=== PATIENT | male | born 1990 ===

== ENCOUNTER 2021-06-21 14:16 | Outpatient (REF) | payer OTHER, SELFPAY ==
--- NOTE | ~2021-06-21 | XR_ITS ---
EXAMINATION: XR ANKLE, LEFT CLINICAL INFORMATION: Left ankle pain. COMPARISON: None TECHNIQUE: AP, lateral, and mortise views of the left ankle. FINDINGS: Tiny calcification interposed between the lateral malleolus and lateral talus. Findings could indicate minimal avulsion fractures in the appropriate clinical setting. Lateral soft tissue swelling. No dislocation. Ankle mortise is maintained. Small tibiotalar joint effusion. No osseous erosion. No joint space or marginal osteophytes. XR/XR ankle LT min 3V IMPRESSION: Lateral soft tissue swelling and tibiotalar joint effusion. Tiny calcification interposed between the lateral malleolus and talus, which could indicate tiny avulsion fractures.
== END 2021-06-21 14:17 | disposition home or self-care (01) ==
LOC: HO.XRAY 14:16
PROVIDERS: PCP Hospitalist; Visit Provider Nurse Practitioner Family
DX: M25.572 Pain in left ankle and joints of left foot (principal)
CPT/HCPCS: 73610

== ENCOUNTER 2021-06-27 07:21 | Outpatient (REF) | payer OTHER, SELFPAY ==
--- NOTE | ~2021-06-27 | XR_ITS ---
EXAMINATION: XR ANKLE, LEFT CLINICAL INFORMATION: Pain COMPARISON: Previous x-ray 06/21/2021 TECHNIQUE: AP, lateral, and mortise views of the left ankle. FINDINGS: Bone alignment is normal. There is a faint soft tissue ossification in between the lateral malleolus and lateral talus similar to recent exam again questionable for possible talar avulsion fracture. There is also a linear ossification in between the medial talus and medial malleolus questionable for avulsion fracture. The ankle mortise is otherwise normal. There is an ankle joint effusion. Soft tissues are otherwise normal. XR/XR ankle LT min 3V IMPRESSION: Unchanged faint soft tissue ossification in between the lateral malleolus and lateral talus questionable for small avulsion fracture. Linear ossification in between the medial talus and medial malleolus also questionable for avulsion fracture. Ankle joint effusion.
== END 2021-06-27 07:22 | disposition home or self-care (01) ==
LOC: HO.HOSX 07:21
PROVIDERS: Visit Provider Physician Assistant
DX: S82.892D Other fracture of left lower leg, subsequent encounter for closed fracture with routine healing (principal)
CPT/HCPCS: 73610; 99202

== ENCOUNTER → 2021-07-11 08:10 | Outpatient (BNVA) | payer OTHER, SELFPAY | PROVIDERS: PCP Hospitalist; Visit Provider Physician Assistant | DX: S82.892D Other fracture of left lower leg, subsequent encounter for closed fracture with routine healing (principal) | CPT/HCPCS: 99212 ==

== ENCOUNTER 2021-08-08 08:04 | Outpatient (REF) | payer OTHER, SELFPAY | END 2021-08-08 08:05 | disposition home or self-care (01) | LOC: HO.HOSX 08:04 | PROVIDERS: Visit Provider Physician Assistant | DX: Z13.89 Encounter for screening for other disorder (principal) ==

== ENCOUNTER 2021-08-11 07:16 | Outpatient (REF) | payer OTHER, SELFPAY ==
--- NOTE | ~2021-08-11 | XR_ITS ---
EXAMINATION: XR ANKLE, LEFT CLINICAL INFORMATION: Pain and unspecified ankle and joint COMPARISON: 06/27/2021 TECHNIQUE: AP, lateral, and mortise views of the left ankle. FINDINGS: The previously seen suspected avulsion fractures from the medial and lateral aspect of the talus are not seen on the current study. No new or additional fracture. No soft tissue swelling. No widening of the ankle mortise. XR/XR ankle LT min 3V IMPRESSION: No acute osseous abnormality. The previously seen suspected avulsion fractures from the medial and lateral talus are not seen on the current exam.
== END 2021-08-11 07:17 | disposition home or self-care (01) ==
LOC: HO.HOSX 07:16
PROVIDERS: Visit Provider Physician Assistant
DX: S82.892A Other fracture of left lower leg, initial encounter for closed fracture (principal)
CPT/HCPCS: 73610; 99212

== ENCOUNTER 2021-09-06 14:00 | Outpatient (RCR) | payer OTHER, SELFPAY ==
--- NOTE | 2021-08-11 09:52 | MHC.PT.OD ---
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 No showed for last appt on 08/09/21. Reports poor tolerance for wearing sneakers. Pain Score and Location: 5 L lateral ankle Objective Flowsheet: Tests & Measures DF to neutral PF to 40 degrees IV 20 degrees EV 5 degrees Sx verbalized with all ranges TTP distal achilles> gastroc soleus complex, ATFL/CFL, distal fibula, talocrural joint Pt presents in slide on sandals Educated in need of attendance and supportive footwear for therapy. Exercises Gentle forward revolution on bike x15 minutes level 2.0 Gastroc towel stretch with strap x 20 sec hold x 5R, seated ankle DF stretch in chair x 10 sec hold x 10R, resisted ankle pumps back and forth x 5 sec hold x 3 sets 10R, flexbar massage roller for bottom of foot to improve plantar fascia tissue extensibility. Pregait activity: Standing at side of parallel bars: pregait hip abd and hip ext completed with L LE in stance in effort to improve weight- bearing tolerance with RTB around ankle. Max cues for encouragement/support education why and how this activity will help him. Education of HEP compliance, supportive footwear for therapy, need for active participation at home with HEP in order to make gains, encouraged walking program. Modalities Assessment: Pt has demonstrated poor attendance thus far with therapy. He had his initial evaluation on 08/01/21 and then no showed for his follow up on 08/09/21. He was encourage to attend therapy 2-3x weekly; it is unclear as to why he has not been seen prior to today's appointment. Today he presents to the office in slip on sandals demonstrating improved gait symmetry/weightbearing tolerance from previous appointment. He showed poor carryover for the written ROM HEP exercises which were issued at time of evaluation. He was educated in the importance of consistent attendance and was told that if he no shows for a second appointment he will be D/C due to noncompliance. His ROM has improved since initial appointment. He may benefit from use of an ASO sleeve for inside of footwear to improve tolerance for CKC and return to work when appropriate. He rates his pain right now as a 5/10 and demonstrated fair>poor tolerance for trial of pregait CKC tasks in effort to improve his weight-bearing ability and gentle ROM. Pt is a R hand dominant, 30 y/o male, referred to PT from PCP following history of work related ankle injury which occurred on 06/06/21 after inversion twisting to L LE. Pt exhibits decreased range of motion of the left ankle, decreased strength, impaired weight bearing tolerance, and inability to run. 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 Pt would benefit from attending skilled PT services at a frequency of 2x/week x 6 weeks to address impairments, implement HEP, and restore functional mobility tolerance to resume PLOF. Pt presents with antalgic gait, decreased stance phase L LE, foot flat contact, demonstrating shortening and report of pain in L achilles. Pt was initiated in gentle AROM on bike seated, shown gastroc towel stretch in sitting, and advised to perform ankle pumps with 5 sec hold to tolerance. Pt was educated re: icing of L ankle to ease in symptoms/pain. Pt encouraged to ice ankle prn pain/edema;- reports has not been taking medication over the counter for sx, has not been icing ankle frequently. PT Plan: To see orthopedics today at 1:00pm. Short Term Goals: 1. L ankle DF to 10 degrees. 2. L ankle PF to 35 degrees. 3. L ankle IV to 25 degrees. 4. L ankle EV to 10 degrees. 5. Initiate HEP and carryover self care. Boiler Maker Goals: 1. Reciprocal gait pattern on stairs. 2. Functional squat with symmetry of weight bearing. 3. L SLS 20 seconds with good dynamic balance. 4. Pt will RTW with good I HEP, self care strategies. Electronically signed by: Yelena Soto, PT, DPT
== END 2021-12-18 09:55 | disposition home or self-care (01) ==
LOC: HO.PTWFD 14:00
PROVIDERS: Visit Provider Nurse Practitioner Family
DX: M25.572 Pain in left ankle and joints of left foot (principal)
CPT/HCPCS: 97110; 97140; 97161; 97530; 97535

== ENCOUNTER 2021-12-05 | Outpatient (REF) | payer OTHER, SELFPAY | END 2021-12-05 00:01 | disposition home or self-care (01) | LOC: HO.LNP | PROVIDERS: Visit Provider Nurse Practitioner Family | DX: Z13.89 Encounter for screening for other disorder (principal) ==

== ENCOUNTER 2021-12-05 11:56 | Outpatient (REF) | payer OTHER, SELFPAY ==
[2021-12-05 12:05] LABS: MANUAL DIFF FLAG NO
[2021-12-05 12:25] LABS: Basophils Absolute Auto 0.1 X10*3/uL (0.0-0.2); Basophils Percent Auto 0.8 % (0-2); Eosinophils Absolute Auto 0.1 X10*3/uL (0.0-0.4); Eosinophils Percent Auto 0.9 % (0-4); Hematocrit 44.7 % (42.0-52.0); Imm Gran Abs Auto 0.04 X10*3/uL (0.00-0.03); Imm Gran Pct Auto 0.4 % (0.0-0.4); Lymphocytes Absolute Auto 2.2 X10*3/uL (1.2-4.9); Lymphocytes Percent Auto 24.4 % (20-40); Mean Corpuscular HGB Conc 35.8 g/dl (31.0-36.0); Mean Corpuscular Hemoglobin 31.3 pg (27.0-33.0); Mean Corpuscular Volume 87.5 fL (80.0-98.0); Mean Platelet Volume 9.5 fL (9.4-12.4); Monocytes Percent Auto 10.9 % (2-11); Neutrophils Absolute Auto 5.6 x10*3/uL (2.0-8.3); Neutrophils Percent Auto 62.6 % (45-73); Platelet Count 283 X10*3/uL (160-400); Red Blood Count 5.11 X10*6/uL (4.60-5.80); Red Cell Distribution Width 13.4 % (11.0-16.0)
[2021-12-05 12:42] LABS: Alanine Aminotransferase 37 U/L (0-40); Albumin Level 4.4 g/dL (3.5-5.0); Alkaline Phosphatase 74 U/L (39-117); Anion Gap 12 (12-20); Aspartate Amino Transferase 21 U/L (5-37); Bilirubin Total 0.3 mg/dL (0.0-1.0); Blood Urea Nitrogen 15 mg/dL (9-16); Calcium 9.6 mg/dL (8.4-10.2); Carbon Dioxide 26 mmol/L (22-29); Chloride 107 mmol/L (96-108); Estimated Glomerular Filt Rate > 60; Glucose Random 105 mg/dL (60-115); Potassium 4.7 mmol/L (3.3-5.1); Sodium 140 mmol/L (135-145); Total Protein 7.5 g/dL (6.5-8.0)
== END 2021-12-05 11:57 | disposition home or self-care (01) ==
LOC: HO.LAB 11:56
PROVIDERS: PCP Nurse Practitioner Family; Visit Provider Nurse Practitioner Family
DX: R10.9 Unspecified abdominal pain (principal); R19.5 Other fecal abnormalities
CPT/HCPCS: 36415; 80053; 85025

== ENCOUNTER 2021-12-06 | Outpatient (REF) | payer OTHER, SELFPAY ==
[2021-12-06 11:48] LABS: Leukocytes Stool Qualitative NEGATIVE (NEGATIVE)
== END 2021-12-06 00:01 | disposition home or self-care (01) ==
LOC: HO.LNP
PROVIDERS: Visit Provider Nurse Practitioner Family
DX: R19.5 Other fecal abnormalities (principal); R10.9 Unspecified abdominal pain
CPT/HCPCS: 87045; 87046; 89055

== ENCOUNTER 2022-11-28 12:36 | Inpatient (IN) | payer OTHER, SELFPAY ==
--- NOTE | ~2022-11-28 | CT_ITS ---
EXAMINATION: CT ABDOMEN AND PELVIS WITHOUT CONTRAST CLINICAL INFORMATION: Abdominal pain and distention COMPARISON: None TECHNIQUE: Multidetector volumetric imaging was performed from the superior aspect of the liver through the pubic symphysis. Sagittal and coronal reformatted images were obtained on the technologist's workstation. This CT examination was performed using dose optimization techniques as appropriate, variously including the following: *Automated exposure control *Adjustment of mA and/or kV according to patient size (this includes techniques or standardized protocols for targeted exams where dose is matched to indication/reason for exam; i.e. extremities or head) *Use of iterative reconstruction technique DLP: 568 mGy-cm FINDINGS: LUNG BASES: The visualized lung bases are unremarkable. LIVER, GALLBLADDER, AND BILIARY TREE: The liver is normal in size, shape, and attenuation. No focal hepatic lesion or biliary ductal dilatation is present. The gallbladder is unremarkable with no evidence of radiopaque gallstones, gallbladder wall thickening, or obvious pericholecystic inflammatory changes. PANCREAS: Unremarkable. SPLEEN: Unremarkable. ADRENAL GLANDS: Unremarkable. KIDNEYS AND URETERS: The kidneys are normal in size, shape, and attenuation. No hydronephrosis, hydroureter, or calculi seen. No perinephric stranding. BLADDER: Unremarkable. GASTROINTESTINAL TRACT: Wall thickening and edema of the colon. There is some stranding of the surrounding fat. Appearance is suggestive of colitis. There is a sparing of the distal sigmoid colon. There is stool in the colon. There are fluid-filled loops of small bowel probably representing an ileus. The appendix is unremarkable. No evidence of obstruction or megacolon. No ascites. No free air. ABDOMINAL WALL: No significant hernia is appreciated. LYMPH NODES: Small mesenteric lymph nodes. No enlarged lymph nodes. VASCULAR: Unremarkable. PELVIC VISCERA: Unremarkable. OSSEOUS STRUCTURES: Small sclerotic lesions in the pelvis and right proximal femur probably representing bone islands. CT/CT abdomen pelvis wo IV con IMPRESSION: Severe colitis. Fleischner guidelines were followed.
[2022-11-28 12:43] VITALS: BP 133/70; PULSE 96; RESP 18; TEMP 37.8; O2SAT 100; BMI 29.2
[2022-11-28 13:05] LABS: MANUAL DIFF FLAG NO
[2022-11-28 13:07] LABS: Basophils Absolute Auto 0.1 X10*3/uL (0.0-0.2); Basophils Percent Auto 0.3 % (0-2); Hematocrit 43.9 % (42.0-52.0); Hemoglobin 15.8 g/dl (14.0-18.0); Imm Gran Abs Auto 0.07 X10*3/uL (0.00-0.03); Imm Gran Pct Auto 0.4 % (0.0-0.4); Lymphocytes Absolute Auto 1.1 X10*3/uL (1.2-4.9); Lymphocytes Percent Auto 7.1 % (20-40); Mean Corpuscular Hemoglobin 30.9 pg (27.0-33.0); Mean Corpuscular Volume 85.7 fL (80.0-98.0); Mean Platelet Volume 9.4 fL (9.4-12.4); Monocytes Absolute Auto 1.3 X10*3/uL (0.1-1.2); Neutrophils Absolute Auto 13.5 x10*3/uL (2.0-8.3); Neutrophils Percent Auto 84.2 % (45-73); Platelet Count 240 X10*3/uL (160-400); Red Blood Count 5.12 X10*6/uL (4.60-5.80); Red Cell Distribution Width 13.4 % (11.0-16.0)
[2022-11-28 13:24] LABS: Alanine Aminotransferase 35 U/L (0-40); Albumin Level 4.5 g/dL (3.5-5.0); Alkaline Phosphatase 67 U/L (39-117); Anion Gap 13 (12-20); Aspartate Amino Transferase 22 U/L (5-37); Bilirubin Total 1.2 mg/dL (0.0-1.0); Blood Urea Nitrogen 21 mg/dL (9-16); Calcium 9.1 mg/dL (8.4-10.2); Carbon Dioxide 22 mmol/L (22-29); Chloride 105 mmol/L (96-108); Creatinine Clr Calc Pharmacy 79.9; Estimated Glomerular Filt Rate 56; Glucose Random 97 mg/dL (60-115); Lipase 12 U/L (8-78); Potassium 3.4 mmol/L (3.3-5.1); Sodium 137 mmol/L (135-145); Total Protein 7.2 g/dL (6.5-8.0)
--- NOTE | 2022-11-28 13:25 | ED.ABDPAIN ---
HPI - Abdominal Pain General Chief Complaint: Abdominal Pain Stated Complaint: from SNF, abd pain x 2 weeks, diff eat/bm per EMS Time Seen by Provider: 11/28/22 12:43 Source: patient Mode of arrival: EMS History of Present Illness HPI narrative: 32-year-old male who presents with his 3rd week of significant lower abdominal discomfort that he states has prevented him from being able to pass flatus without pain, he expresses pain on urination as well as on defecation. He states he has only been able to pass small amounts of diarrhea, describes chills, dizziness and feeling bloated. Patient denies any history of kidney stones. I received initial evaluation from walk-in clinic who stated that patient was diaphoretic at the clinic and appeared ?almost ready to pass out?. Related Data Previous Rx's Medication Instructions Recorded dicyclomine 10 mg capsule 10 mg PO BID PRN pain #14 caps 12/05/21 simethicone 80 mg chewable tablet 80 mg PO TID-QID PRN abdominal 12/05/21 (Gas Relief (simethicone)) distention #21 tabs omeprazole 20 mg tablet,delayed 20 mg PO DAILY #30 tabs 12/28/21 release Allergies Allergy/AdvReac Type Severity Reaction Status Date / Time No Known Allergies Allergy Verified 11/28/22 10:57 [No Known Allergies*] Review of Systems Review of Systems Pertinent positives and negatives as stated in HPI PMFSH Past Medical History Source: nursing notes reviewed Medical History Anxiety Depression Meningitis Post traumatic stress disorder (PTSD) Surgical screw in right hand Surgical History History of orthopedic surgery Family History Family History Mother Varicose veins of left leg with edema Depression with anxiety Breast cancer Chronic mental illness Brother Autism Father No problems noted. 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 GENERAL: Well developed, well nourished, in no acute distress. HEAD: Normocephalic/atraumatic EYES: PERRLA, EOMI EARS: Ext canals without abnormality OROPHARYNX: no oral lesions noted, posterior pharynx clear LUNGS: Normal breath sounds. No adventitious sounds or accessory muscle use. SpO2<100> CARDIOVASCULAR: Regular rate and rhythm without noted murmurs ABDOMEN: Soft, tenderness across lower abdomen, maximal at suprapubic without rebound, mild distension with bowel sounds. MUSCULOSKELETAL: No tenderness, deformities, or effusions noted on gross inspection. EXTREMITIES: No cyanosis, clubbing or edema. SKIN: Inspection of the skin reveals no rashes NEUROLOGIC: Alert and oriented x 4. Strength and sensation to light touch were grossly intact x 4. Course Course Course Narrative: 1500: I suspect sepsis. I reviewed all investigations which demonstrates that patient has a leukocytosis with left shift, he is febrile with BUCKY and CT findings consistent with colitis. Patient is received 2 L of fluid. And all results and findings discussed with him at bedside. I would consider sending this patient home on oral antibiotics if he had not already waited so long that he was noted to be diaphoretic, mildly distended and dizzy. I have discussed this case with the inpatient hospitalist who will accept admission. Reevaluation(s) Reevaluation #1: On further information gathering patient denies any family history of IBD and denies any personal history of antibiotic use. Time: 16:22 Medical Decision Making Medical Decision Making MDM Narrative: 32-year-old male with 3 weeks of worsening lower abdominal pain and associated difficulties with defecation and urination. Lab work and imaging studies were ordered. Differential Diagnosis Differential Diagnoses: The differential diagnosis associated with the presentation includes Appendicitis, renal colic, diverticulitis, UTI Admission/Observation Consideration of admission/observation: Escalation of care including admission/observation considered Due to leukocytosis and CT scan findings consider IV antibiotics is patient is entering into his 3rd week of abdominal pain. Consult Healthcare Provider Management of the patient was discussed with: Hospitalist I discussed with the inpatient hospitalist who accepts admission. Lab Data MDM Lab Attestation statement: I reviewed the patient's lab results. Please see the course Section for discussion. Result Diagrams: 11/28/22 13:01 11/28/22 13:01 Labs: Lab Results 11/28/22 11/28/22 11/28/22 Range/Units 13:01 13:01 13:30 WBC 16.0 H (4.8-10.8) X10*3/uL RBC 5.12 (4.60-5.80) X10*6/uL Hgb 15.8 (14.0-18.0) g/dl Hct 43.9 (42.0-52.0) % MCV 85.7 (80.0-98.0) fL MCH 30.9 (27.0-33.0) pg MCHC 36.0 (31.0-36.0) g/dl RDW 13.4 (11.0-16.0) % Plt Count 240 (160-400) X10*3/uL MPV 9.4 (9.4-12.4) fL Immature Gran % (Auto) 0.4 (0.0-0.4) % Neut % (Auto) 84.2 H (45-73) % Lymph % (Auto) 7.1 L (20-40) % [place] % (Auto) 8.0 (2-11) % Eos % (Auto) 0.0 (0-4) % Baso % (Auto) 0.3 (0-2) % Lymph # (Auto) 1.1 L (1.2-4.9) X10*3/uL [place] # (Auto) 1.3 H (0.1-1.2) X10*3/uL Eos # (Auto) 0.0 (0.0-0.4) X10*3/uL Baso # (Auto) 0.1 (0.0-0.2) X10*3/uL Abs Immat Gran (auto) 0.07 H (0.00-0.03) X10*3/uL Absolute Neuts (auto) 13.5 H (2.0-8.3) x10*3/uL Absolute Nucleated RBC 0.000 (0.0-0.012) X10*3/uL Nucleated RBC % (auto) 0.0 (0.0-0.2) /100WBC Sodium 137 (135-145) mmol/L Potassium 3.4 D (3.3-5.1) mmol/L Chloride 105 (96-108) mmol/L Carbon Dioxide 22 (22-29) mmol/L Anion Gap 13 (12-20) BUN 21 H (9-16) mg/dL Creatinine 1.47 H (0.5-1.4) mg/dL Estim Creat Clear Calc 79.9 Estimated GFR 56 Random Glucose 97 (60-115) mg/dL Calcium 9.1 (8.4-10.2) mg/dL Total Bilirubin 1.2 H (0.0-1.0) mg/dL AST 22 (5-37) U/L ALT 35 (0-40) U/L Alkaline Phosphatase 67 (39-117) U/L Total Protein 7.2 (6.5-8.0) g/dL Albumin 4.5 (3.5-5.0) g/dL Lipase 12 (8-78) U/L COVID-19 (YINKA) (Negative) COVID-19 Clin Com Influenza Type A ([facility]RAH) Negative (Negative) Influenza Type B (FARRAH) Negative (Negative) Influenza A & B Note See Note 11/28/22 Range/Units 13:30 WBC (4.8-10.8) X10*3/uL RBC (4.60-5.80) X10*6/uL Hgb (14.0-18.0) g/dl Hct (42.0-52.0) % MCV (80.0-98.0) fL MCH (27.0-33.0) pg MCHC (31.0-36.0) g/dl RDW (11.0-16.0) % Plt Count (160-400) X10*3/uL MPV (9.4-12.4) fL Immature Gran % (Auto) (0.0-0.4) % Neut % (Auto) (45-73) % Lymph % (Auto) (20-40) % [place] % (Auto) (2-11) % Eos % (Auto) (0-4) % Baso % (Auto) (0-2) % Lymph # (Auto) (1.2-4.9) X10*3/uL [place] # (Auto) (0.1-1.2) X10*3/uL Eos # (Auto) (0.0-0.4) X10*3/uL Baso # (Auto) (0.0-0.2) X10*3/uL Abs Immat Gran (auto) (0.00-0.03) X10*3/uL Absolute Neuts (auto) (2.0-8.3) x10*3/uL Absolute Nucleated RBC (0.0-0.012) X10*3/uL Nucleated RBC % (auto) (0.0-0.2) /100WBC Sodium (135-145) mmol/L Potassium (3.3-5.1) mmol/L Chloride (96-108) mmol/L Carbon Dioxide (22-29) mmol/L Anion Gap (12-20) BUN (9-16) mg/dL Creatinine (0.5-1.4) mg/dL Estim Creat Clear Calc Estimated GFR Random Glucose (60-115) mg/dL Calcium (8.4-10.2) mg/dL Total Bilirubin (0.0-1.0) mg/dL AST (5-37) U/L ALT (0-40) U/L Alkaline Phosphatase (39-117) U/L Total Protein (6.5-8.0) g/dL Albumin (3.5-5.0) g/dL Lipase (8-78) U/L COVID-19 (YINKA) Negative (Negative) COVID-19 Clin Com See Note Influenza Type A ([facility]) (Negative) Influenza Type B ([facility]) (Negative) Influenza A & B Note Radiology Impression Radiologist Impression: My interpretation is in agreement with the radiologist impression of CT scan findings. External Record Review External record reviewed: Outpatient record and Prior outpatient labs Prescription Management I considered prescription management with: Antibiotic Zosyn was provided Medications Administered Discontinued Medications Generic Name Dose Route Start Last Admin Trade Name Freq PRN Reason Stop Dose Admin Sodium Chloride 1,000 mls @ 999 mls/hr 11/28/22 13:30 11/28/22 16:06 Ns IV 12/28/22 14:30 Infused .Q1H1M PANKAJ Infusion Piperacillin Sod/Tazobactam 50 mls @ 100 mls/hr 11/28/22 15:21 11/28/22 16:15 Sod 3.375 gm/ Sodium Chloride IV 11/28/22 15:50 100 mls/hr ONCE ONE Administration Ketorolac Tromethamine 15 mg 11/28/22 13:30 11/28/22 14:15 Ketorolac Tromethamine 30 Mg/Ml Vial IVPUSH 11/28/22 13:31 15 mg ONCE ONE Administration Critical Care Time Critical Care Time Critical Care Time: Yes Total Critical Care Time: 45 Attestation: I personally attest to this time spent taking care of the patient. Discharge Plan Discharge Clinical Impression: Sepsis, Colitis, BUCKY (acute kidney injury) Patient Disposition: Admitted As Inpatient
[2022-11-28 13:53] LABS: COVID-19 Test Negative (Negative); IDNOW Serial# 08D9AD1C; Influenza A Negative (Negative); Influenza B2 Negative (Negative)
[2022-11-28] MEDS: 0.9 % Sodium Chloride 1,000 ML 999 ML IV ×2 (14:13→16:23)
[2022-11-28] MEDS: Ketorolac Tromethamine 30 MG/ML VIAL 15 MG IVPUSH (14:15)
[2022-11-28 15:10] VITALS: BP 128/67; PULSE 100; RESP 16; TEMP 38.3; O2SAT 97
[2022-11-28] MEDS: Piperacillin Sodium/Tazobactam 3.375 GM in 0.9 % Sodium Chloride 50 ML IV (16:15)
--- NOTE | 2022-11-28 16:29 | PM.IMHP ---
History of Present Illness Date of Service: 11/28/22 Chief Complaint: Abdominal pain, diarrhea 32 year old male with PMH as listed below who comes in with 3 weeks of daily non blody diarrhea, and moderate mid abdominal pain , fever and chills. Pain is worst with defcation and urination. ED work up WBC 16, CT = severe colitis, Cr 1.47, temp 100.9 Review of Systems Review of Systems: Abd pain, diarrhea, no blood in stool. Yes all other systems are reviewed and are negative [facility] Medical History Anxiety Depression Meningitis Post traumatic stress disorder (PTSD) Surgical screw in right hand Family History Mother Varicose veins of left leg with edema Depression with anxiety Breast cancer Chronic mental illness Brother Autism Father No problems noted. 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 Cognitive needs: No Hearing needs: No Vision needs: No Meds Allergies Allergy/AdvReac Type Severity Reaction Status Date / Time No Known Allergies Allergy Verified 11/28/22 10:57 [No Known Allergies*] Active Medications: Current Medications Sodium Chloride (Ns) 1,000 mls @ 999 mls/hr IV .Q1H1M PANKAJ Stop: 11/28/22 17:15 Last Admin: 11/28/22 16:23 Dose: 999 mls/hr Home Medications Medication Instructions Recorded Confirmed Last Taken Type No Known Home Meds 11/28/22 11/28/22 Unknown History Physical Exam Vital Signs and Narrative: Vital Signs: Last Vital Signs Temp 100.9 F H 11/28/22 15:10 Pulse 100 11/28/22 15:10 Resp 16 11/28/22 15:10 BP 128/67 11/28/22 15:10 Pulse Ox 97 11/28/22 15:10 O2 Del Method 11/28/22 15:10 BMI result Body Mass Index 29.2 Const: Other: Constitutional: Alert, in no distress, overweight. Mental Status: Oriented to person, place and time. Eyes: Pupils are equal, round and reactive to light. Ear, Nose and Throat: Oropharynx clear, mucous membranes moist. Ears and nose without eformities. Trachea midline. Respiratory: Clear to auscultation. No wheezing, rales or rhonchi. Cardiovascular: S1 S2 regular. No murmurs, rubs or gallops. Gastrointestinal: non specific diffuse tenderness, Abdomen soft, non-distended. Normal bowel sounds.?rectal exam defered Neurologic: Cranial nerves II-XII grossly intact. No focal neurological deficits. Moves all extremities spontaneously.? Skin: No rashes or lesions.? Musculoskeletal: No cyanosis or clubbing. Psychiatric: Normal mood and affect? Results Labs CBC and Chem 7: 11/28/22 13:01 11/28/22 13:01 Labs: Laboratory Results - last 24 hr 11/28/22 11/28/22 11/28/22 13:01 13:01 13:30 MCV 85.7 MCH 30.9 MCHC 36.0 RDW 13.4 Plt Count 240 MPV 9.4 Immature Gran % (Auto) 0.4 Neut % (Auto) 84.2 H Lymph % (Auto) 7.1 L [place] % (Auto) 8.0 Eos % (Auto) 0.0 Baso % (Auto) 0.3 Lymph # (Auto) 1.1 L [place] # (Auto) 1.3 H Eos # (Auto) 0.0 Baso # (Auto) 0.1 Abs Immat Gran (auto) 0.07 H Absolute Neuts (auto) 13.5 H Absolute Nucleated RBC 0.000 Nucleated RBC % (auto) 0.0 Anion Gap 13 Estim Creat Clear Calc 79.9 Estimated GFR 56 Random Glucose 97 Calcium 9.1 Total Bilirubin 1.2 H AST 22 ALT 35 Alkaline Phosphatase 67 Total Protein 7.2 Albumin 4.5 Lipase 12 COVID-19 ([facility]INKA) COVID-19 Clin Com Influenza Type A ([facility]) Negative Influenza Type B ([facility]) Negative Influenza A & B Note See Note 11/28/22 13:30 MCV MCH MCHC RDW Plt Count MPV Immature Gran % (Auto) Neut % (Auto) Lymph % (Auto) [place] % (Auto) Eos % (Auto) Baso % (Auto) Lymph # (Auto) [place] # (Auto) Eos # (Auto) Baso # (Auto) Abs Immat Gran (auto) Absolute Neuts (auto) Absolute Nucleated RBC Nucleated RBC % (auto) Anion Gap Estim Creat Clear Calc Estimated GFR Random Glucose Calcium Total Bilirubin AST ALT Alkaline Phosphatase Total Protein Albumin Lipase COVID-19 (YINKA) Negative COVID-19 Clin Com See Note Influenza Type A (FARRAH) Influenza Type B ([facility]RAH) Influenza A & B Note Imaging Radiologist's Impressions: Impressions Abdomen/Pelvis CT 11/28/22 14:08 IMPRESSION: Severe colitis. Fleischner guidelines were followed. Assessment and Plan (1) Sepsis: Status: Acute (2) Colitis: Status: Acute (3) BUCKY (acute kidney injury): Status: Acute Plan 32 yo male with sepsis due to severe colitis, DDx: IBD(chrohn's vs UC) -check CRP, ESR, GI consult, -IVF, hold Abx for now -Zofran, morphine for pain Time Spent With Patient Time: Total time managing care of this patient today ____ minutes. Quality Stroke Does the patient have a stroke diagnosis?: No VTE Prior VTE?: No VTE Risk Level:: Medical - low VTE Device Contraindication: Treatment Not Indicated VTE Drug Contraindication: Treatment Not Indicated
[2022-11-28 16:31] LABS: Appearance Urine Clear; Color Urine Dark Yellow; Glucose Urine UA Negative (Negative); Leukocyte Esterase Urine Negative (Negative); Nitrite Urine Negative (Negative); Specific Gravity - Urine >= 1.030 (1.005-1.025); UMIC TRIGGER UACC YES; Urine Blood Negative (Negative); Urine Ketones 80 mg/dL (Negative); Urine Protein 30 (1+) mg/dL (Neg-Trace)
[2022-11-28 16:34] LABS: Bacteria Urine None Seen (None Seen); Hyaline Casts Urine 0-2 /LPF (0-2); Squamous Epithelial Cell Urine 0-2 /HPF (0-2); WBC Urine 0-5 /HPF (0-5)
--- NOTE | 2022-11-28 16:45 | PHA.MEDREC ---
Pharmacy Consult ? Medication Reconciliation Pharmacy has completed the medication reconciliation.
[2022-11-28 17:08] LABS: Lactic Acid 1.1 mmol/L (0.5-2.0)
[2022-11-28] MEDS: Acetaminophen 325 MG TABLET 975 MG PO (17:23)
[2022-11-28 18:49] VITALS: BP 127/61; PULSE 98; RESP 17; TEMP 39; O2SAT 97
[2022-11-28 20:25] VITALS: BP 102/55; PULSE 90; RESP 14; TEMP 37.8; O2SAT 98
--- NOTE | 2022-11-28 20:50 | PC.NURSE ---
Assumed care for pt. Pt aox4 resting at the bedside. Reports no pain at this time. Pt able to ambulate independently. Provided stool sample. Sample is light brown and watery/diarrhea. Sample sent to the lab as ordered. Pt is aware of plan of care.
[2022-11-28 21:40] LABS: CDiff Gene PCR NEGATIVE (Negative)
[2022-11-28 22:55] VITALS: BP 122/59; PULSE 100; RESP 14; TEMP 39.1; O2SAT 99
[2022-11-28] MEDS: Morphine Sulfate 2 MG/ML CARTRIDGE IVPUSH (22:56)
[2022-11-29] VITALS: BP 116/62; PULSE 99; RESP 20; TEMP 39.2; O2SAT 99
[2022-11-29] MEDS: Acetaminophen 325 MG TABLET 650 MG PO ×2 (01:11→12:16)
--- NOTE | 2022-11-29 01:16 | PC.NURSE ---
Pt medicated with Tylenol for fever.
[2022-11-29 03:57] VITALS: BP 109/62; PULSE 81; RESP 16; TEMP 36.9; O2SAT 96
[2022-11-29 06:00] VITALS: BP 113/64; PULSE 81; RESP 16; TEMP 37.2; O2SAT 97
--- NOTE | 2022-11-29 10:36 | MHC.CM.PN ---
PT REPORTS HE LIVES WITH HIS S/O AND IS INDEPENDENT WITH CARE PT DENIES USE OF DME OR SERVICES PT HAS NO PCP AND SAYS THE LAST ONE HE WAS ACTIVE WITH WAS DR EMILEE TONY PT REPORTS HE DOES KNOW HOW TO CONNECT WITH A NEW PROVIDER PT IS NOT MANDIE NICHOLSON AND HAS NO HCP CURRENT DC PLAN IS HOME WITH NO SERVICES HE WILL ARRANGE TRANSPORT
[2022-11-29 11:23] LABS: Adenovirus F 40/41 Not Detected (Not Detect.); Astrovirus Not Detected (Not Detect.); Cryptosporidium Not Detected (Not Detect.); Cyclospora cayetanensis Not Detected (Not Detect.); E. coli EAEC Not Detected (Not Detect.); E. coli EPEC Not Detected (Not Detect.); E. coli ETEC Not Detected (Not Detect.); E. coli STEC Not Detected (Not Detect.); Entamoeba histolytica Not Detected (Not Detect.); Giardia lamblia Not Detected (Not Detect.); Norovirus GI/GII Not Detected (Not Detect.); Plesiomonas shigelloides Not Detected (Not Detect.); Rotavirus A Not Detected (Not Detect.); Salmonella Not Detected (Not Detect.); Sapovirus Detected (Not Detect.); Shigella sp./EIEC Not Detected (Not Detect.); Vibrio Not Detected (Not Detect.); Vibrio Cholerae Not Detected (Not Detect.); Yersinia enterocolitica Not Detected (Not Detect.)
[2022-11-29 11:31] LABS: Campylobacter Detected (Not Detect.)
--- NOTE | 2022-11-29 11:33 | MHC.IC ---
Patient has + GI panel for Campylobacter and Sapovirus. Please use SOAP and WATER after all contact and BLEACH for disinfecting surfaces.
[2022-11-29] MEDS: Morphine Sulfate 2 MG/ML CARTRIDGE IVPUSH (12:06)
--- NOTE | 2022-11-29 12:37 | PM.GICN ---
History of Present Illness Data of Consult Service Date: 11/29/22 Requesting physician: Nicanor Long Primary Care Provider: KRISTIN Arce HPI Reason for consult: colitis 32 YM with GERD, anxiety, depression and PTSD seen at [facility] on 11/28/22 with 3 weeks of abdominal pain and daily non blody diarrhea, fever and chills. Pain is worst with defcation and urination.? ED work up WBC 16, Cr 1.47,? temp 100.9 Pt reports suddent onset of diffuse abdominal pain 3 weeks ago (had a burger, fries and chicken McNuggets from [employer] approx 4 hours prior to onset of symptoms) Pt had nausea and vomiting during the initial week of illness and was unable to eat. You intake was decreased to 1 meal a day. Abdominal pain was accompanied by diarrhea consisting of pudding like stool (which were hard to push out) Abd pain was 10/10 yesterday and improved to 6/10 today. He reports having 13 BMs yesetrday and 6-7 today. The diarrhea became watery during the 2nd week and was associated with excruciating abdominal and rectal pain associated with bowel movements. Pt reports multiple small, non-bloody BMs with passage of stool every 1-1/2-2 hours Pt reports associated chills, intermittent fevers (100 to 101F) and GUERRA. Patient denies major cardiac or pulmonary problems. Patient denies smoking cigarettes or EtOH abuse. He smokes marijuana twice daily. 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 Denies being on chronic anticoagulation. Family hx is positive for Crohn's disease in his mother and maternal aunt. Mom also has exocrine 6 pancreatic insufficiency. Maternal GF had colon cancer. PAST EGD/COLONOSCOPY: Pt reports having an EGD and a colonoscopy 15 yrs ago at [facility] for evaluation of rectal bleeding and was diagnosed with hemorrhoids. PAST GI HISTORY BY REVIEW OF MEDICAL RECORDS: Stool culture was positive for Campylobacter and Sapovirus 11/28/[address] SCAN SHOWED: GASTROINTESTINAL TRACT: Wall thickening and edema of the colon. There is some stranding of the surrounding fat. Appearance is suggestive of colitis. There is a sparing of the distal sigmoid colon. There is stool in the colon. There are fluid-filled loops of small bowel probably representing an ileus. The appendix is unremarkable. No evidence of obstruction or megacolon. No ascites. No free air. Review of Systems Review of Systems: Abd pain, diarrhea, no blood in stool. Yes all other systems are reviewed and are negative [facility] Past Medical History Medical History Anxiety Depression GERD (gastroesophageal reflux disease) Meningitis Post traumatic stress disorder (PTSD) Surgical screw in right hand Family History Family History Mother Varicose veins of left leg with edema Depression with anxiety Breast cancer Chronic mental illness Brother Autism Father No problems noted. 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 Cognitive needs: No Hearing needs: No Vision needs: No Meds Allergies Allergy/AdvReac Type Severity Reaction Status Date / Time azithromycin Allergy Intermediate Itching Verified 12/18/22 11:54 Active Medications: Current Medications Morphine Sulfate (Morphine Sulfate 2 Mg/Ml Cartridge) 2 mg IVPUSH Q5M PRN; Protocol PRN Reason: Chest Pain Last Admin: 11/29/22 12:06 Dose: 2 mg Physical Exam Vital Signs: Vital Signs: Last Vital Signs Temp 99.0 F 11/29/22 06:00 Pulse 81 11/29/22 06:00 Resp 16 11/29/22 06:00 BP 113/64 11/29/22 06:00 Pulse Ox 97 11/29/22 06:00 O2 Del Method 11/29/22 06:00 BMI result Body Mass Index 29.2 Const: General: healthy appearing and no acute distress Nutritional Appearance: overweight Orientation/consciousness: patient oriented x3 Limitations: no limitations HEENT: Head: Yes normal to inspection Ears: hearing grossly normal bilaterally Mouth: Normal oral and palatal mucosa present Eyes: Sclerae: sclerae normal Pupils: Equal, round and reactive pupils present Neck: Neck: Yes normal visual inspection Chest: Chest palpation & inspection: normal inspection of the chest Resp: Effort & Inspection: normal respiratory effort Auscultation: clear to auscultation bilaterally Cardio: Palpation: normal PMI Rate: regular rate Rhythm: regular rhythm Heart sounds: S1 normal heart sound present, S2 normal heart sound present and no murmurs GI: Inspection: Yes distended (slightly) Palpation (GI): Soft to palpation, Tenderness to palpation present (GI) (Mild diffuse abd tenderness - Rt > left) and No hepatosplenomegaly present Auscultation: normal bowel sounds Rectal Exam - Male: Yes deferred Skin: General skin exam: no rashes or lesions noted Neuro: General: patient oriented x3, gait normal and moves all extremities Cranial nerves: Yes Equal, round and reactive pupils present Psych: Appearance: grossly normal Mental Status: mental status grossly normal Results Labs 11/29/22 12:37 11/29/22 12:37 Labs: Short CBC 11/28/22 Range/Units 13:01 WBC 16.0 H (4.8-10.8) X10*3/uL Hgb 15.8 (14.0-18.0) g/dl Hct 43.9 (42.0-52.0) % Plt Count 240 (160-400) X10*3/uL BMP 11/28/22 13:01 Sodium 137 Potassium 3.4 D Chloride 105 Carbon Dioxide 22 BUN 21 H Creatinine 1.47 H Calcium 9.1 Liver Function 11/28/22 Range/Units 13:01 Total Bilirubin 1.2 H (0.0-1.0) mg/dL AST 22 (5-37) U/L ALT 35 (0-40) U/L Alkaline Phosphatase 67 (39-117) U/L Albumin 4.5 (3.5-5.0) g/dL Urine 11/28/22 Range/Units 16:25 Urine Color Dark Yellow Urine Appearance Clear Urine pH 6.0 (5.0-9.0) Ur Specific [place] >= 1.030 H (1.005-1.025) Urine Protein 30 (1+) H (Neg-Trace) mg/dL Urine Glucose (UA) Negative (Negative) mg/dL Assessment and Plan (1) Colitis: Status: Resolved (2) GERD (gastroesophageal reflux disease): Status: Inactive (3) Bloating: Status: Resolved Plan 32 YM with GERD, anxiety, depression and PTSD admitted to [facility] on 11/28/22 with 3 weeks of abdominal pain with distension and daily non bloody diarrhea, fever and chills. Pain is worst with defcation and urination.? ED work up WBC 16, Cr 1.47,? temp 100.9 Stool culture was positive for Campylobacter and Sapovirus. Pt's symptoms are likely due to Campylobacter infection. Subacute presentation of Crohn's disease is less likely. Family hx is positive for Crohn's disease in his mother and maternal aunt. Mom also has exocrine 6 pancreatic insufficiency. Maternal GF had colon cancer. 11/28/[address] SCAN SHOWED: GASTROINTESTINAL TRACT: Wall thickening and edema of the colon. There is some stranding of the surrounding fat. Appearance is suggestive of colitis. There is a sparing of the distal sigmoid colon. There is stool in the colon. There are fluid-filled loops of small bowel probably representing an ileus. The appendix is unremarkable. No evidence of obstruction or megacolon. No ascites. No free air RECOMMENDATIONS: 1. Agree with IV antibiotics and IV pain medications. 2. If symptoms of abdominal pain and diarrhea improve over 48 to 72 hrs, he can be discharged home. If symptoms persist, pt can be scheduled for a colonoscopy Time Spent With Patient Time: Total time managing care of this patient today ____ minutes. Procedures Date of Service Date of Service: 11/29/22
[2022-11-29 12:45] LABS: Hematocrit 42.4 % (42.0-52.0); Hemoglobin 14.6 g/dl (14.0-18.0); Mean Corpuscular HGB Conc 34.4 g/dl (31.0-36.0); Mean Platelet Volume 9.7 fL (9.4-12.4); Platelet Count 168 X10*3/uL (160-400); Red Blood Count 4.71 X10*6/uL (4.60-5.80)
--- NOTE | 2022-11-29 13:03 | PC.NURSE ---
PT ABLE TO AMBULATE TO BATHROOM W STEADY GAIT. HAD LIQUID BM PER PT. REQUESTING MEDICATION FOR ABD PAIN AND HEADACHE, MEDICATED PER EMAR. TOLERATING PO LIQUID WITHOUT ISSUE. AWAITING INPT BED ASSIGNMENT. DIET ADVANCED W PROVIDER. POTENTIAL FOR DISCHARGE LATER TODAY, WILL REVISIT.
[2022-11-29 13:07] LABS: Anion Gap 12 (12-20); Blood Urea Nitrogen 17 mg/dL (9-16); Calcium 8.3 mg/dL (8.4-10.2); Carbon Dioxide 18 mmol/L (22-29); Chloride 110 mmol/L (96-108); Estimated Glomerular Filt Rate > 60; Glucose Random 103 mg/dL (60-115); Potassium 3.3 mmol/L (3.3-5.1); Sodium 137 mmol/L (135-145)
--- NOTE | 2022-11-29 13:07 | HO.PM.IMPN ---
Subjective Subjective Date of Service: 11/29/22 Interval History: f/u on severe colitis, abdominal pain, stool studies show saporovirus and campylobacter, overall she's feeling better Review of Systems Abd pain, diarrhea, no blood in stool. Physical Exam Vital Signs: Vital Signs: Last Vital Signs Temp 99.0 F 11/29/22 06:00 Pulse 81 11/29/22 06:00 Resp 16 11/29/22 06:00 BP 113/64 11/29/22 06:00 Pulse Ox 97 11/29/22 06:00 O2 Del Method 11/29/22 06:00 BMI result Body Mass Index 29.2 Const: Other: General: AO X 3, no acute distress Resp: CTA bilateral CVS: S1,S2,RRR GI: +BS, NT, no distention Skin: No rash Neuro: motor grossly intact Psych: appropriate affect Objective Data Active Medications Morphine Sulfate (Morphine Sulfate 2 Mg/Ml Cartridge) 2 mg IVPUSH Q5M PRN; Protocol PRN Reason: Chest Pain Last Admin: 11/29/22 12:06 Dose: 2 mg Documented By: HARISH Labs CBC & Chem 7: 11/29/22 12:37 11/28/22 13:01 Labs: Laboratory Results - last 24 hr 11/28/22 11/28/22 11/28/22 13:01 13:01 13:30 MCV 85.7 MCH 30.9 MCHC 36.0 RDW 13.4 Plt Count 240 MPV 9.4 Immature Gran % (Auto) 0.4 Neut % (Auto) 84.2 H Lymph % (Auto) 7.1 L [place] % (Auto) 8.0 Eos % (Auto) 0.0 Baso % (Auto) 0.3 Lymph # (Auto) 1.1 L [place] # (Auto) 1.3 H Eos # (Auto) 0.0 Baso # (Auto) 0.1 Abs Immat Gran (auto) 0.07 H Absolute Neuts (auto) 13.5 H Absolute Nucleated RBC 0.000 Nucleated RBC % (auto) 0.0 Anion Gap 13 Estim Creat Clear Calc 79.9 Estimated GFR 56 Random Glucose 97 Lactic Acid Calcium 9.1 Total Bilirubin 1.2 H AST 22 ALT 35 Alkaline Phosphatase 67 Total Protein 7.2 Albumin 4.5 Lipase 12 Urine Color Urine Appearance Urine pH Ur Specific [place] Urine Protein Urine Glucose (UA) Urine Ketones Urine Blood Urine Nitrite Ur Leukocyte Esterase Urine RBC Urine WBC Ur Squamous Epith Cells Urine Bacteria Hyaline Casts Stl C. cayetanensis PCR Stool Rotavirus A PCR Stl Adenov F PCR Stool Astrovirus (PCR) Stool Campylobacter PCR Stool Cryptosporidium PCR Stl Sh Tox Pr E STEC PCR Stool E coli O157 PCR Stl Enterotoxigenic E PCR Stool EPEC (PCR) Stool EAEC (PCR) Stl E. histolytica PCR Stool Giardia Lamblia PCR Stl P. shigelloides PCR Stool Salmonella PCR Stool Sapovirus (PCR) Stl Shigella/EIEC PCR St Y.enterocolitica PCR Stool Vibrio (PCR) Stl Vibrio cholerae PCR Stl Norovirus GI/GII PCR C. difficile Tox B Gene COVID-19 (YINKA) COVID-19 Clin Com Influenza Type A (FARRAH) Negative Influenza Type B (FARRAH) Negative Influenza A & B Note See Note 11/28/22 11/28/22 11/28/22 13:30 16:25 16:53 MCV MCH MCHC RDW Plt Count MPV Immature Gran % (Auto) Neut % (Auto) Lymph % (Auto) [place] % (Auto) Eos % (Auto) Baso % (Auto) Lymph # (Auto) [place] # (Auto) Eos # (Auto) Baso # (Auto) Abs Immat Gran (auto) Absolute Neuts (auto) Absolute Nucleated RBC Nucleated RBC % (auto) Anion Gap Estim Creat Clear Calc Estimated GFR Random Glucose Lactic Acid 1.1 Calcium Total Bilirubin AST ALT Alkaline Phosphatase Total Protein Albumin Lipase Urine Color Dark Yellow Urine Appearance Clear Urine pH 6.0 Ur Specific [place] >= 1.030 H Urine Protein 30 (1+) H Urine Glucose (UA) Negative Urine Ketones 80 Urine Blood Negative Urine Nitrite Negative Ur Leukocyte Esterase Negative Urine RBC 3-5 H Urine WBC 0-5 Ur Squamous Epith Cells 0-2 Urine Bacteria None Seen Hyaline Casts 0-2 Stl C. cayetanensis PCR Stool Rotavirus A PCR Stl Adenov F PCR Stool Astrovirus (PCR) Stool Campylobacter PCR Stool Cryptosporidium PCR Stl Sh Tox Pr E STEC PCR Stool E coli O157 PCR Stl Enterotoxigenic E PCR Stool EPEC (PCR) Stool EAEC (PCR) Stl E. histolytica PCR Stool Giardia Lamblia PCR Stl P. shigelloides PCR Stool Salmonella PCR Stool Sapovirus (PCR) Stl Shigella/EIEC PCR St Y.enterocolitica PCR Stool Vibrio (PCR) Stl Vibrio cholerae PCR Stl Norovirus GI/GII PCR C. difficile Tox B Gene COVID-19 (YINKA) Negative COVID-19 Clin Com See Note Influenza Type A (FARRAH) Influenza Type B (FARRAH) Influenza A & B Note 11/28/22 11/28/22 11/29/22 20:41 20:41 12:37 MCV 90.0 MCH 31.0 MCHC 34.4 RDW 14.0 Plt Count 168 D MPV 9.7 Immature Gran % (Auto) Neut % (Auto) Lymph % (Auto) [place] % (Auto) Eos % (Auto) Baso % (Auto) Lymph # (Auto) [place] # (Auto) Eos # (Auto) Baso # (Auto) Abs Immat Gran (auto) Absolute Neuts (auto) Absolute Nucleated RBC 0.000 Nucleated RBC % (auto) 0.0 Anion Gap Estim Creat Clear Calc Estimated GFR Random Glucose Lactic Acid Calcium Total Bilirubin AST ALT Alkaline Phosphatase Total Protein Albumin Lipase Urine Color Urine Appearance Urine pH Ur Specific [place] Urine Protein Urine Glucose (UA) Urine Ketones Urine Blood Urine Nitrite Ur Leukocyte Esterase Urine RBC Urine WBC Ur Squamous Epith Cells Urine Bacteria Hyaline Casts Stl C. cayetanensis PCR Not Detected Stool Rotavirus A PCR Not Detected Stl Adenov F 40/41 PCR Not Detected Stool Astrovirus (PCR) Not Detected Stool Campylobacter PCR Detected A Stool Cryptosporidium PCR Not Detected Stl Sh Tox Pr E STEC PCR Not Detected Stool E coli O157 PCR Not applicable Stl Enterotoxigenic E PCR Not Detected Stool EPEC (PCR) Not Detected Stool EAEC (PCR) Not Detected Stl E. histolytica PCR Not Detected Stool Giardia Lamblia PCR Not Detected Stl P. shigelloides PCR Not Detected Stool Salmonella PCR Not Detected Stool Sapovirus (PCR) Detected A Stl Shigella/EIEC PCR Not Detected St Y.enterocolitica PCR Not Detected Stool Vibrio (PCR) Not Detected Stl Vibrio cholerae PCR Not Detected Stl Norovirus GI/GII PCR Not Detected C. difficile Tox B Gene NEGATIVE COVID-19 (YINKA) COVID-19 Clin Com Influenza Type A (FARRAH) Influenza Type B (FARRAH) Influenza A & B Note Assessment and Plan (1) Colitis: Status: Acute (2) BUCKY (acute kidney injury): Status: Acute Plan 32 yo male with sepsis due to severe colitis, Stool serology: campylobacter and saporovirus -start liquid diet -Azithro 500 mg daily x 3 days to cover campylobacter -Saporovirus similar to Norovirus and symptomatic treatment -IVF until eating well -Zofran, morphine for pain BUCKY is resolving. continue IVF Need for inaptietn: hydration, IV Abx for colitis, possible dc later today if doing better and able to take pills by mouth Time Spent With Patient Time: Total time managing care of this patient today ____ minutes. Quality Stroke Does the patient have a stroke diagnosis?: No VTE Prior VTE?: No VTE Risk Level:: Medical - low VTE Device Contraindication: Treatment Not Indicated VTE Drug Contraindication: Treatment Not Indicated
[2022-11-29] MEDS: Azithromycin 500 MG in 0.9 % Sodium Chloride 250 ML 125 MG IV (13:30)
--- NOTE | 2022-11-29 14:19 | PC.NURSE ---
pt arm acutely red and itchy following azithromycin infusion start. removed and ice placed on iv site, site appears otherwise asymptomatic. provider aware and will change orders.
[2022-11-29] MEDS: levoFLOXacin/D5W 750 MG/150 ML PIGGYBACK 100 MG IV (14:35)
[2022-11-29] MEDS: diphenhydrAMINE HCL 50 MG/ML VIAL 25 MG IVPUSH (14:35)
[2022-11-29 16:02] VITALS: BP 128/76; PULSE 86; RESP 18; TEMP 37.1; O2SAT 98
[2022-11-29 19:30] VITALS: BP 146/58; PULSE 85; RESP 18; TEMP 36.9; O2SAT 99
[2022-11-30 03:44] VITALS: BP 110/59; PULSE 73; RESP 18; TEMP 36.2; O2SAT 98
[2022-11-30 08:00] VITALS: BP 118/60; PULSE 71; RESP 17; TEMP 36.5; O2SAT 99
--- NOTE | 2022-11-30 08:58 | PM.DS ---
DS: Providers Provider Date of Service: 11/30/22 Date of admission: 11/29/22 06:06 Primary care physician: KRISTIN Arce Consults: 11/29/22 11:57 Consult to Gastroenterology Routine Consulting Provider: Dorita Rich Reason for consultation: colitis Has provider been notified: No DS: Diagnosis Discharge Diagnosis (1) Colitis: Status: Resolved (2) Bloating: Status: Resolved DS: Summary Hospital Course Hospital Course: Chief Complaint: Abdominal pain, diarrhea 32 year old male with PMH as listed below who comes in with 3 weeks of daily non blody diarrhea, and moderate mid abdominal pain , fever and chills. Pain is worst with defcation and urination.? ED work up WBC 16, CT = severe colitis, Cr 1.47,? temp 100.9 Hospital course: Patient was admitted for management of acute, severe colitis, workup revealed Campylobacter and saporovirus (similar to norovirus) in the stool. He was treated with IV fluids, IV pain medication and started on antibiotics with a initially azithromycin (prefer agent for campylobacter) to which she reacted with a significant itchiness and was subsequently changed to Levaquin and to be treated for total of 3 days. He was seen by GI and will follow up with Dr. Rich on outpatient basis for Crohn's workup as the patient has family history of Crohn's disease. HIV is pending He is presently tolerating regular diet and his symptoms as nearly all gone. He is no longer febrile and WBC has returned to normal. He had BUCKY which is resolved with IVF. Final diagnosis: Campylobacter colitis BUCKY Time Spent with Patient Time attestation: Total time managing care of this patient today ____ minutes. Discharge coordination time: Greater than 30 minutes Quality: Safe Use of Opioids Does Pt have an Active Cancer Diagnosis on the Problem List?: No Quality: Stroke Does the patient have a stroke diagnosis?: No Physical Exam Vital Signs: Vital Signs: Last Vital Signs Temp 97.7 F 11/30/22 08:00 Pulse 71 11/30/22 08:00 Resp 17 11/30/22 08:00 BP 118/60 11/30/22 08:00 Pulse Ox 99 11/30/22 08:00 O2 Del Method 11/30/22 08:00 BMI result Body Mass Index 29.2 Const: Other: General: AO X 3, no acute distress Resp: CTA bilateral CVS: S1,S2,RRR GI: +BS, NT, no distention Skin: No rash Neuro: motor grossly intact Psych: appropriate affect DS: Data Data Completed and Pending Labs on day of discharge: Laboratory Results - last 24 hr 11/28/22 11/29/22 11/29/22 20:41 12:37 12:37 WBC 9.0 RBC 4.71 Hgb 14.6 Hct 42.4 MCV 90.0 MCH 31.0 MCHC 34.4 RDW 14.0 Plt Count 168 D MPV 9.7 Absolute Nucleated RBC 0.000 Nucleated RBC % (auto) 0.0 Sodium 137 Potassium 3.3 Chloride 110 H Carbon Dioxide 18 L Anion Gap 12 BUN 17 H Creatinine 1.35 Estim Creat Clear Calc 87.0 Estimated GFR > 60 Random Glucose 103 Calcium 8.3 L D Stl C. cayetanensis PCR Not Detected Stool Rotavirus A PCR Not Detected Stl Adenov F 40/41 PCR Not Detected Stool Astrovirus (PCR) Not Detected Stool Campylobacter PCR Detected A Stool Cryptosporidium PCR Not Detected Stl Sh Tox Pr E STEC PCR Not Detected Stool E coli O157 PCR Not applicable Stl Enterotoxigenic E PCR Not Detected Stool EPEC (PCR) Not Detected Stool EAEC (PCR) Not Detected Stl E. histolytica PCR Not Detected Stool Giardia Lamblia PCR Not Detected Stl P. shigelloides PCR Not Detected Stool Salmonella PCR Not Detected Stool Sapovirus (PCR) Detected A Stl Shigella/EIEC PCR Not Detected St Y.enterocolitica PCR Not Detected Stool Vibrio (PCR) Not Detected Stl Vibrio cholerae PCR Not Detected Stl Norovirus GI/GII PCR Not Detected Preliminary micro results at discharge 11/28/22 17:27 Blood Culture - Preliminary Blood - Venous No growth after 24 hours. 11/28/22 16:53 Blood Culture - Preliminary Blood - Venous No growth after 24 hours. Discharge Plan Discharge Anticipated Discharge Date/Time: 11/30/22 09:00 Patient Disposition: Home, Self-Care Discharge Diagnosis: Campylobacter colitis Referrals: Dorita Rich MD [Physician] - 1 Week (Call for appointment) Rosangela Simmons FNP [Primary Care Provider] - 1 Week Discharge Medications: No Action simethicone [Gas Relief 80 (simethicone)] 80 mg tablet,chewable 80 mg PO TID-QID PRN (Reason: abdominal distention) Qty: 30 0RF Discharge Orders: Discharge Order (Routine); Ordered 11/30/22 Ordered By: Nicanor Long Diet: Advance to usual diet Activity on Discharge: As tolerated Stand Alone Forms: Patient Portal Discharge page Care Plan Goals: Full recovery Health Concerns: Campylobacter colitis Plan of Treatment: To finish [facility], follow-up with Dr. Hilario knowles GI for Crohn's disease workup Assessment: As above Discharge Date/Time: 11/30/22 11:25
--- NOTE | 2022-11-30 09:08 | MHC.CM.PN ---
PATIENT IS DISCHARGED HOME TODAY - SELF CARE RN AWARE OF PLAN.
[2022-11-30 09:47] LABS: HIV AB/AG Nonreactive (Nonreactive); HIV Num 1 0.05 S/CO (0.00-0.99)
== END 2022-11-30 11:25 | disposition home or self-care (01) | DRG 720 ==
LOC: HO.ED 16:18 → HO.EDOVER 11-29 06:11 → HO.S3 11-29 13:52
PROVIDERS: Admitting Provider Internal Medicine; Emergency Provider Student in an Organized Health Care Education/Training Program; PCP Nurse Practitioner Family; Visit Provider Internal Medicine
DX: A41.9 Sepsis, unspecified organism (principal); N17.9 Acute kidney failure, unspecified; A04.5 Campylobacter enteritis; Z20.822 Contact with and (suspected) exposure to COVID-19; Z88.1 Allergy status to other antibiotic agents; F43.10 Post-traumatic stress disorder, unspecified; F41.9 Anxiety disorder, unspecified; F32.A Depression, unspecified
CPT/HCPCS: 36415; 74176; 80048; 80053; 81001; 83605; 83690; 85025; 85027; 87040; 87389; 87493; 87502; 87507; 87635; 99218; 99285; J0456; J1200; J1885; J1956; J2270; J2543

== ENCOUNTER 2023-03-06 15:11 | Outpatient (REF) | payer OTHER, SELFPAY ==
[2023-03-06 17:42] LABS: C Reactive Protein 0.27 mg/dL (< or = 0.50); Lipase 20 U/L (8-78)
[2023-03-06 18:15] LABS: Vitamin B12 301 pg/mL (200-900)
[2023-03-08 22:44] LABS: Transglutaminase Ab IgG <1.0 U/mL; Transglutaminase IgA <1.0 U/mL
[2023-03-09 11:07] LABS: H Pylori Breath Test Negative (Negative)
[2023-03-13 15:12] LABS: Vitamin D 25-OH, D2 <4 ng/mL; Vitamin D 25-OH, D3 23 ng/mL; Vitamin D 25-OH, Total 23 ng/mL (30-100)
== END 2023-03-06 15:12 | disposition home or self-care (01) ==
LOC: HO.LAB 15:11
PROVIDERS: PCP Nurse Practitioner Family; Referring Provider Nurse Practitioner Family; Visit Provider Nurse Practitioner Family
DX: K58.0 Irritable bowel syndrome with diarrhea (principal); K21.9 Gastro-esophageal reflux disease without esophagitis; K52.9 Noninfective gastroenteritis and colitis, unspecified; R10.9 Unspecified abdominal pain; R10.13 Epigastric pain; A04.5 Campylobacter enteritis; R14.0 Abdominal distension (gaseous); R19.5 Other fecal abnormalities; R15.9 Full incontinence of feces; E55.9 Vitamin D deficiency, unspecified
CPT/HCPCS: 36415; 82306; 82607; 82746; 83013; 83690; 86140; 86364; 99202

== ENCOUNTER → 2023-04-10 15:00 | Outpatient (BNVA) | payer OTHER, SELFPAY | PROVIDERS: PCP Nurse Practitioner Family; Visit Provider Nurse Practitioner Family | DX: A04.5 Campylobacter enteritis (principal); R14.0 Abdominal distension (gaseous); R19.5 Other fecal abnormalities | CPT/HCPCS: 99212 ==

== ENCOUNTER 2023-06-21 14:00 | Outpatient (AMB) | payer OTHER, SELFPAY ==
[2023-06-21 14:04] VITALS: BP 130/82; PULSE 72; O2SAT 98; BMI 27.9
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
== END 2023-06-21 14:45 | disposition home or self-care (01) ==
PROVIDERS: PCP Nurse Practitioner Family; Visit Provider Nurse Practitioner Family
DX: Z00.00 Encounter for general adult medical examination without abnormal findings (principal); M79.672 Pain in left foot; F32.89 Other specified depressive episodes
CPT/HCPCS: 99395

== ENCOUNTER 2024-04-08 08:49 | Outpatient (AMB) | payer OTHER, SELFPAY ==
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
[2024-04-08 09:03] VITALS: BP 110/74; PULSE 88; O2SAT 97; BMI 27.3
== END 2024-04-08 09:40 | disposition home or self-care (01) ==
PROVIDERS: PCP Nurse Practitioner Family; Visit Provider Internal Medicine
DX: M54.2 Cervicalgia (principal)
CPT/HCPCS: 99213

== ENCOUNTER 2024-05-15 16:07 | Outpatient (AMB) | payer OTHER, SELFPAY ==
[2024-05-15 16:12] VITALS: BP 100/60; PULSE 102; O2SAT 98; BMI 25.6
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
== END 2024-05-15 17:00 | disposition home or self-care (01) ==
PROVIDERS: PCP Internal Medicine; Visit Provider Internal Medicine
DX: M54.2 Cervicalgia (principal); G25.3 Myoclonus; R51.9 Headache, unspecified; M54.89 Other dorsalgia; G47.00 Insomnia, unspecified
CPT/HCPCS: 99214

== ENCOUNTER 2024-08-13 11:50 | Outpatient (AMB) | payer OTHER, SELFPAY ==
[2024-08-13 11:59] VITALS: BP 110/78; PULSE 94; O2SAT 98; BMI 27.6
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
== END 2024-08-13 12:31 | disposition home or self-care (01) ==
LOC: HO.HMGH 11:50
PROVIDERS: PCP Internal Medicine; Visit Provider Internal Medicine
DX: M54.2 Cervicalgia (principal); G25.3 Myoclonus; M54.89 Other dorsalgia; G47.00 Insomnia, unspecified; F41.9 Anxiety disorder, unspecified
CPT/HCPCS: 99214

== ENCOUNTER 2024-09-26 09:08 | Outpatient (AMB) | payer OTHER, SELFPAY ==
[2024-09-26 09:16] VITALS: BP 106/70; PULSE 94; TEMP 37.1; O2SAT 98; BMI 27.3
--- NOTE | 2024-09-26 09:16 | MHC.OFFWIV ---
Intake Vital Signs 09/26/24 09:16 Height 5 ft 9 in Weight 185 lb BMI 27.3 BP 106/70 Blood Pressure Location Lt brachial Position Sitting Pulse 94 Pulse Source Pulse Oximeter Temp 98.7 F Temp Source Oral Pulse Oximetry (%) 98 Oxygen Delivery Method Room Air Intake Visit Reasons: EP Chest congestion, stomach ache, Diarrhea Intake Note: Pt is here today c/o chest congestion, stomach ache and diarrhea x1week Patient Tobacco Use Status: Never used Tobacco Allergies azithromycin Allergy (Intermediate, Verified 09/26/24 09:30) Itching HPI EP Chest congestion, stomach ache, Diarrhea HPI Details Patient is a 34-year-old male comes to the walk-in clinic complaining Pt is here today c/o chest congestion, stomach ache and diarrhea x1week. He has not been taking Imodium AD. He has been modifying his diet to eat bland foods so as not to aggravate his symptoms and drinking adequate amount of water. [facility] Medical History GERD (gastroesophageal reflux disease) Post traumatic stress disorder (PTSD) Anxiety Depression Meningitis Surgical screw in right hand Surgical History Hx of circumcision History of orthopedic surgery Family History Mother Varicose veins of left leg with edema Depression with anxiety Breast cancer Chronic mental illness Exocrine pancreatic insufficiency Crohn disease Brother Autism Father No problems noted. 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 Cognitive needs: No Hearing needs: No Vision needs: No Review of Systems Const All systems reviewed & are unremarkable except as noted in HPI and below Physical Exam Vital Signs: Last Vital Signs Temp 98.7 F 09/26/24 09:16 Pulse 94 09/26/24 09:16 BP 106/70 09/26/24 09:16 Pulse Ox 98 10/26/24 09:16 Oxygen Delivery Method Room Air 10/26/24 09:16 BMI result Body Mass Index 27.3 Const General: cooperative, comfortable, alert, awake, Physically active, ill appearing, tired appearing and well groomed; No anxious, diaphoretic, intoxicated appearing or poor hygiene Nutritional Appearance: average body habitus Orientation/consciousness: patient oriented x3 Limitations: no limitations HEENT Head: Yes normal to inspection, Yes normocephalic and Yes atraumatic Ears: hearing grossly normal bilaterally, external ears normal and EAC's normal General nose exam: Normal external nose present Face and sinus: Yes normal facial exam, Yes sinuses nontender and Yes face symmetric Mouth: Normal oral and palatal mucosa present, lip normal and tongue normal Throat: Yes abnormal tonsil (mildly erythematous bilaterally), No peritonsillar mass, No uvular edema and No cobblestoning Neck Neck: Yes normal visual inspection, Yes trachea midline, Yes supple and No anterior neck swelling Chest Chest palpation & inspection: normal palpation of entire chest wall Resp Effort & Inspection: normal respiratory effort, able to speak in complete sentences, no audible wheezes, Actively coughing (Congested cough) Quality: productive, no grunting, not labored, no nasal flaring, no retractions and symmetric chest movement Auscultation: clear to auscultation bilaterally, no crackles, no rales, no rhonchi, no wheezes, bronchial breath sounds and No rub present Cardio Rate: regular rate Rhythm: regular rhythm Skin Other: Good color, warm and dry Neuro General: patient oriented x3 Psych Appearance: grossly normal Mental Status: mental status grossly normal Speech and movement: Normal speech and movement present Affect: normal affect Attitude: cooperative Thought process: Normal thought process present Insight: Good insight present (Psych) Judgement: Good judgement present (Psych) Results Reviewed Results Reviewed: Plain film x-rays shows haziness, atelectasis and on radiologist read bronchial wall thickening. Assessment & Plan Assessment & Plan (1) Lower respiratory infection: Code(s): J22 - Unspecified acute lower respiratory infection Plan Patient over a week out now with persistent chest congestion, and now states that he is getting short of breath especially when lying supine. He also has persistent chills, however no documented fevers, and diarrhea with no apparent blood source. His chest x-ray is consistent with bronchial wall thickening and likely bronchitis, with no apparent consolidation of fluid. Pending flu COVID and RSV results. I wrote him for a course of prednisone, and due to erythematous TM on the left side with left otitis media, I will write him for Augmentin. This would cover empirically for community-acquired pneumonia also. He can trial Imodium 80 for the loose stools, as he has not tried anything yet. He should continue adequate fluid intake However he should follow up if symptoms persist or worsen, or go to the emergency department with worrisome symptoms. Orders: Orders SARS-CoV2/FLU/RSV Today J06.9 - Acute upper respiratory infection, unspecified XR chest 2V Today R05.9 - Cough, unspecified Medications: New amoxicillin-pot clavulanate 875-125 mg 1 tab PO BID 14 tabs 0RF prednisone 40 mg (2 x 20 mg) PO DAILY 10 tabs 0RF 5 days Coding Level of Care Code Est Pt Level 4 (19950) Diagnoses Lower respiratory infection J22
== END 2024-09-26 10:59 | disposition home or self-care (01) ==
PROVIDERS: PCP Internal Medicine; Visit Provider Physician Assistant Medical
DX: J22 Unspecified acute lower respiratory infection (principal)

== ENCOUNTER 2024-09-26 09:08 | Outpatient (REF) | payer OTHER, SELFPAY ==
--- NOTE | ~2024-09-26 | XR_ITS ---
EXAMINATION: XR CHEST CLINICAL INFORMATION: Cough COMPARISON: None available. TECHNIQUE: 2 views of the chest were obtained. FINDINGS: The cardiac silhouette is normal. There is mild diffuse bronchial wall thickening. There are no areas of consolidation. There are no pleural effusions or pneumothoraces. The bones and soft tissues are unremarkable for the patient's age. XR/XR chest 2V IMPRESSION: Bronchial wall thickening may be infectious and/or inflammatory in etiology. Electronically signed by: Mattie Cool MD 09/26/2024 12:48 PM EDT RP
== END 2024-09-26 09:09 | disposition home or self-care (01) ==
LOC: HO.HMGCX 09:08
PROVIDERS: PCP Internal Medicine; Visit Provider Physician Assistant Medical
DX: R05.9 Cough, unspecified (principal); R09.89 Other specified symptoms and signs involving the circulatory and respiratory systems; R10.9 Unspecified abdominal pain; R19.7 Diarrhea, unspecified; J06.9 Acute upper respiratory infection, unspecified
CPT/HCPCS: 71046; 99212

== ENCOUNTER 2024-09-26 10:51 | Outpatient (REF) | payer OTHER, SELFPAY ==
[2024-09-26 14:01] LABS: Influenza A PCR NEGATIVE (Negative); Influenza B PCR NEGATIVE (Negative); Resp Syncy Virus RNA Qual PCR NEGATIVE (Negative); SARS COV2 PCR INHOUSE NEGATIVE (Negative)
== END 2024-09-26 10:52 | disposition home or self-care (01) ==
LOC: HO.LAB 10:51
PROVIDERS: Visit Provider Physician Assistant Medical
DX: J06.9 Acute upper respiratory infection, unspecified (principal)
CPT/HCPCS: 0241U

== ENCOUNTER 2024-12-15 10:52 | Outpatient (AMB) | payer OTHER, SELFPAY ==
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
[2024-12-15 10:56] VITALS: BP 122/78; PULSE 97; O2SAT 97; BMI 28.7
== END 2024-12-15 11:43 | disposition home or self-care (01) ==
PROVIDERS: PCP Internal Medicine; Visit Provider Internal Medicine
DX: M54.2 Cervicalgia (principal); G25.3 Myoclonus; M54.89 Other dorsalgia; G47.00 Insomnia, unspecified; F41.9 Anxiety disorder, unspecified; E66.3 Overweight

== ENCOUNTER → 2024-12-15 10:52 | Outpatient (BNVA) | payer OTHER, SELFPAY | PROVIDERS: PCP Internal Medicine; Visit Provider Internal Medicine | DX: M54.2 Cervicalgia (principal); G25.3 Myoclonus; M54.89 Other dorsalgia; G47.00 Insomnia, unspecified; F41.9 Anxiety disorder, unspecified; E66.3 Overweight; Z68.28 Body mass index [BMI] 28.0-28.9, adult; Z71.3 Dietary counseling and surveillance | CPT/HCPCS: 96127; 99212 ==

== ENCOUNTER 2025-03-24 09:49 | Outpatient (AMB) | payer OTHER, SELFPAY ==
[2025-03-24 09:52] VITALS: BP 110/80; PULSE 91; O2SAT 98; BMI 27.4
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
--- OUTSIDE RECORDS SUMMARY | 2025-03-24 11:15 | XMS_ITS | Clinical Summary ---
Author Organization [facility] Address [address] [place] [address] Care Team Providers Care Estate Tax Examiner Name Role Phone Unavailable Primary Care Provider Unavailabl e Medications Medication Sig Dispensed Refills Start Date End Date Status ibuprofen 600 MG tablet TAKE 1 TABLET BY MOUTH THREE TIMES A DAY WITH FOOD NEEDED FOR PAIN 0 02/07/2024 Active carisoprodol (SOMA) 350 MG tablet TAKE 1 TABLET BY MOUTH THREE TIMES A DAY NEEDED FOR MUSCLE SPASMS 0 02/12/2024 Active gabapentin (NEURONTIN) 300 MG capsuleIndications:Co ncussion with brief LOC Take 1 capsule (300 mg total) by mouth 3 (three) times a day. 90 capsule 2 06/10/2024 Active cyclobenzaprine (FLEXERIL) 5 MG tabletIndications:Con cussion with brief LOC Take 1 tablet (5 mg total) by mouth 3 (three) times a day as needed for muscle spasms. 90 tablet 2 06/10/2024 Active DULoxetine (CYMBALTA) DR capsule 20 mgIndications:Nonintr actable headache, unspecified chronicity pattern, unspecified headache type Take 1 capsule (20 mg total) by mouth daily. 30 capsule 2 08/14/2024 Active Active Problems Problem Noted Date Diagnosed Date Concussion with brief LOC 04/16/2024 Social History Tobacco Use Types Packs/Day Years Used Date Smoking Tobacco: Never Assessed Sex and Gender Information Value Date Recorded Sex Assigned at Male 02/03/2024 11:53 AM EST Gender Identity Not on file Sexual Orientation Not on file Job Start Date Occupation Industry Not on file Not on file Not on file Last Filed Vital Signs Vital Sign Reading Time Taken Comments Blood Pressure 135/86 08/14/2024 10:38 AM EDT Pulse 81 08/14/2024 10:38 AM EDT Temperature - - Respiratory Rate - - Oxygen Saturation 98% 08/14/2024 10:38 AM EDT Inhaled Oxygen Concentration - - Weight - - Height - - Body Mass Index - - Plan of Treatment Health Maintenance Due Date Last Done Comments Hepatitis C Screening 1990 COVID-19 Vaccine (#1) 03/18/1991 Hepatitis B Vaccines (2 of 3 - 3-dose series) 10/30/1995 10/02/1995 Depression Screening 2002 Preventative Health Evaluation 2008 DTap / Tdap / Td (1 - Tdap) 2009 Influenza Vaccine (#1) 2024 Pneumococcal Vaccine Aged Out No long er eligible based on patient's age to complete this topic RSV Ped < 20 months Aged Out No longe r eligible based on patient's age to complete this topic
--- OUTSIDE RECORDS SUMMARY | 2025-03-24 11:15 | XMS_ITS | Clinical Summary ---
Author Organization [facility] Address [address] [place] [address] Care Team Providers Care Recreation Assistant Name Role Phone Pcp, No Primary Care Provider Unavailabl e Allergies No known active allergies Medications gabapentin (NEURONTIN) 300 MG capsule Take 1 capsule (300 mg total) by mouth 3 (three) times a day. 4 Active OXcarbazepine (TRILEPTAL) 150 MG tabletIndicatio ns:Myoclonus Take 1 tablet (150 mg total) by mouth 2 (two) times a day. 60 tablet 3 5 Active OXcarbazepine (TRILEPTAL) 150 MG tabletIndicatio ns:Myoclonus Take 1 tablet (150 mg total) by mouth 2 (two) times a day. 60 tablet 3 5 02/26/20 25 Discontinu ed(Reorder ) Encounters Date Type Department Care Team Description 03/19/2025 Telephone [facility] Neurology [address] [phone] Jesus Hairston MD 03/11/2025 8:18 AM EDT - 03/11/2025 11:59 PM EDT Hospital Encounter [facility] [address] [place] [phone] Jesus Hairston MD Myoclonus Discharge Disposition: Home or Self Care 03/11/2025 Travel 02/25/2025 Telephone [facility] Neurology [address] [phone] Neurology, Scan 02/24/2025 Orders Only [facility] Neurology [address] [phone] Jesus Hairston MD Myoclonus 02/24/2025 Telephone [facility] Neurology [address] [phone] Jesus Hairston MD 12/31/2024 Telephone [facility] [address] [place] [phone] ProviderNica External Data Appointment 12/31/2024 Telephone [facility] [address] [place] [phone] Jesus Hairston MD Appointment (Called the [employer] workers' compensation claims supervisor over 4x to get authorization for EEGscheduled 01/01/2025. Ale (alarm adjuster) has never replied back. I Spoke with patient today and informed him that we would have to reschedule his appointment once we had approval for EEG. Patient seemed fine. ) 12/30/2024 Telephone [facility] [address] [place] [phone] ProviderNadeen MD 12/28/2024 Orders Only [facility] Neurology [address] [phone] Jesus Hairston MD Myoclonus (Primary Dx) 12/28/2024 Telephone [facility] Neurology [address] [phone] Antwan Pichardo APRN from Last 3 Months Family History Medical History Relation Name Comments Autism Brother Anxiety disorder Mother Depression Mother Autism Son Relation Name Status Comments Brother Mother Son Social History Tobacco Use Types Packs/Day Years Used Date Smoking Tobacco: Never Smokeless Tobacco: Never Tobacco Cessation:Counseling Given: Not Answered Alcohol Use Standard Drinks/Week Comments Never 0 (1 standard drink = 0.6 oz pur e alcohol) PHQ-2 Answer Date Recorded PHQ-2 Total Score 6 12/15/2024 Sex and Gender Information Value Date Recorded Sex Assigned at Not on file Legal Sex Male 10:58 AM EDT Gender Identity Not on file Sexual Orientation Not on file Last Filed Vital Signs Vital Sign Reading Time Taken Comments Blood Pressure 132/91 12/15/2024 2:48 PM EST Pulse 99 12/15/2024 2:48 PM EST Temperature - - Respiratory Rate - - Oxygen Saturation - - Inhaled Oxygen Concentration - - Weight 88 kg (194 lb) 12/15/2024 2:48 PM EST Height 175.3 cm (5' 9 ) 12/15/2024 2:48 PM EST Body Mass Index 28.65 12/15/2024 2:48 PM EST Plan of Treatment Upcoming Encounters Date Type Department Care Team (Late st Contact Info) Description 2025 9:10 AM EDT Office Visit [facility] Neurology [place] [address] [place] [address] Antwan Pichardo, JOSE ENRIQUE [address] [facility] [address] [place] [address] Health Maintenance Due Date Last Done Comments Hepatitis C Virus Screening 1990 HIV Screening 2003 DTaP/Tdap/Td Vaccines (1 - Tdap) 2009 Hepatitis B Vaccines (1 of 3 - 19+ 3-dose series) 2009 Influenza Vaccine 07/02/2024 COVID-19 Vaccine ( - 2023-2 5 season) 2024 HPV Vaccines Aged Out No longer eligi ble based on patient's age to complete this topic Pneumococcal Vaccine: Pediat gregory (0-5 Years) and At-Risk Patients (6 to 49 Years) Aged Out No longer eligible b ased on patient's age to complete this topic Procedures Procedure Name Priority Date/Time Associated Diagnosis Comments EEG ROUTINE Routine 03/11/2025 10:00 AM EDT Myoclonus from Last 3 Months Results * EEG AWAKE OR DROWSY (03/11/2025 10:00 AM EDT) Narrative [facility] - 03/11/2025 10:00 AM EDT Keiko Pereira MD ? 03/11/2025 11:47 AM OUTPATIENT ADULT ??ELECTROENCEPHALOGRAM (EEG) REPORT Facility: ? [facility] Patient and : Kofi Villa 1990 Date of Procedure: 03/11/2025 Referring:Jesus Hairston MD CLINICAL INFORMATION: ??EEG is requested in a 34 y.o. male to evaluate events of unclear etiology in the setting of head injury. RECORDING CONDITIONS: ??This is a ??natural sleep routine EEG performed in the outpatient EEG lab. ??The standard International 10-20 System of electrode placement was utilized, with a minimum of 20 electrodes and additional channels monitored for eye movement. One channel electrocardiogram was monitored. Data were obtained, stored, and interpreted according to ACNS guidelines (J Clin Neurophysiol 2006;23(2):85-183) utilizing referential montage recording, with reformatting to longitudinal, transverse bipolar, and referential montages as necessary for interpretation. The patient tolerated entire procedure without difficulty. Photic stimulation and hyperventilation were utilized as activation procedures unless otherwise specified below. E.E.G. DESCRIPTION: Posterior Activity: In the maximally awake state, posterior frequencies were symmetric consisting of 10 Hz activity with reactivity to eye opening. Background Activity: The background was symmetric and continuous consisting of a normal voltage, age-appropriate admixture of frequencies; anterior-posterior organization was normal. Sleep Activity: Sleep was not captured. Activation procedures: Hyperventilation: ??was not performed. Photic stimulation: ??produced no clear response. Reactivity: Reactivity was present; no spontaneous state changes appreciated. Focal and/or Rhythmic Slowing: None. Epileptiform/Ictal Activity: None. Clinical Events/Seizures: ??There were frequent episodes captured on video wherein the patient demonstrated a single abrupt, rapid head jerk to the right, sometimes associated with ??arm jerking as well. These episodes were accentuated during activation procedure (photic stimulation). There was NO associated ictal EEG correlate. ECG: No notable ECG abnormalities were apparent. Other: N/A. E.E.G. INTERPRETATION: Normal natural sleep outpatient routine EEG for age during ??awake notable for: 1) ??Frequent episodes of abrupt, rapid head jerk to the right, sometimes associated with synchronous arm jerking - with no ictal EEG correlate. CLINICAL CORRELATION: ??This EEG was within normal limits. Frequent episodes of head jerking to the right, as described above, were not associated with any ictal EEG changes. There were no epileptiform discharges or electrographic seizures. Keiko Pereira MD [facility] FOR EEG LAB USE: Normal :qz!01; Non-epileptic Events :qz!13; Complexity ratin :qz!16 us Jesus Hairston MD NEUROLOGY ORDERABLES Edite d Result - Final [facility] [address] [place] [address], from Last 3 Months Insurance [employer] (AUTO/LIABILITY) TRAVELERS TRAVELERS Care Teams Recreation Assistant Relationship Specialty Start Date End Date Pcp, No PCP - General General Medicine 12/14/24
--- OUTSIDE RECORDS SUMMARY | 2025-03-24 11:15 | XMS_ITS ---
Author Name [facility] Organization Unknown History of Medication Use Medication Directions Dispensed Refills Start Date End Date Stat us OXcarbazepine (TRILEPTAL) 150 MG tablet Take 1 tablet (150 mg total) by mouth 2 (two) times a day. 12/28/2024 active clonazePAM (KlonoPIN) 0.5 MG tablet Take 1 tablet (0.5 mg total) by mouth nightly. 12/15/2024 active cyclobenzaprine (FLEXERIL) 5 MG tablet Take 1 tablet (5 mg total) by mouth 3 (three) times a day as needed for muscle spasms. 05/01/2024 06/10/2024 active cyclobenzaprine (FLEXERIL) 5 MG tablet Take 1 tablet (5 mg total) by mouth 3 (three) times a day as needed for muscle spasms. 05/01/2024 active carisoprodol (SOMA) 350 MG tablet TAKE 1 TABLET BY MOUTH THREE TIMES A DAY NEEDED FOR MUSCLE SPASMS 02/12/2024 active ibuprofen 600 MG tablet TAKE 1 TABLET BY MOUTH THREE TIMES A DAY WITH FOOD NEEDED FOR PAIN 02/07/2024 active Problems Problem Status Onset Date Problem Type Date of Resoluti on Source Myoclonus active EncounterDiagnosisAct [facility] [place] active EncounterDiagnosisAct CTTHNEMG Functional movement disorder active EncounterDiagnosisAct C TTHNEMG Concussion with brief LOC active 2024-04-16 ProblemAct [facility]THNEMG Encounters Encounter Type Encounter Reason Primary Diagnosis Location Date Ambulatory Myoclonus Myoclonus [facility] 5 Ambulatory Myoclonus Myoclonus [facility] 5 Ambulatory [facility] 4 Ambulatory Concussion with loss of consciousness status unknown, initial encounter Concussion with loss of consciousness status unknown, initial encounter [facility] 4 Ambulatory Concussion with loss of consciousness status unknown, initial encounter Concussion with loss of consciousness status unknown, initial encounter [facility] 4 Ambulatory Concussion with loss of consciousness status unknown, initial encounter Concussion with loss of consciousness status unknown, initial encounter [facility] 4 Ambulatory Concussion with loss of consciousness status unknown, initial encounter Concussion with loss of consciousness status unknown, initial encounter [facility] 4 Ambulatory Concussion with loss of consciousness status unknown, initial encounter Concussion with loss of consciousness status unknown, initial encounter [facility] 4 Ambulatory Concussion with loss of consciousness status unknown, initial encounter Concussion with loss of consciousness status unknown, initial encounter [facility] 4 Ambulatory Concussion with loss of consciousness status unknown, initial encounter Concussion with loss of consciousness status unknown, initial encounter [facility] 4 Ambulatory Concussion with loss of consciousness status unknown, initial encounter Concussion with loss of consciousness status unknown, initial encounter [facility] 4 Ambulatory [facility] 4 Ambulatory [facility] 4 Ambulatory Concussion with loss of consciousness status unknown, initial encounter Concussion with loss of consciousness status unknown, initial encounter [facility] 4 Ambulatory [facility] 4 Ambulatory [facility] 4 Ambulatory [facility] 4 Ambulatory Postconcussional syndrome Postconcussional syndrome [facility] 4 Ambulatory [facility] 4 Ambulatory Postconcussional syndrome Postconcussional syndrome [facility] 4 Ambulatory Concussion with loss of consciousness status unknown, initial encounter Concussion with loss of consciousness status unknown, initial encounter [facility] 4 Ambulatory Postconcussional syndrome Postconcussional syndrome [facility] 4 Ambulatory Postconcussional syndrome Postconcussional syndrome [facility] 4 Ambulatory [facility] 4 Ambulatory Postconcussional syndrome Postconcussional syndrome [facility] 4 Ambulatory Postconcussional syndrome Postconcussional syndrome [facility] 4 Ambulatory Postconcussional syndrome Postconcussional syndrome [facility] 4 Ambulatory Postconcussional syndrome Postconcussional syndrome [facility] 4 Ambulatory Postconcussional syndrome Postconcussional syndrome [facility] 4 Ambulatory Postconcussional syndrome Postconcussional syndrome [facility] 4 Ambulatory Postconcussional syndrome Postconcussional syndrome [facility] 4 Care Team Organization Name Specialty Phone Email Start Date End [id number] PCP Career Development Associate 01/02/2025 [id number] NO PCP Primary Care 12/14/2024 [facility] 10/2024 [facility] 07/2024 [facility] 02/17/2024 [facility] 02/11/2024
--- OUTSIDE RECORDS SUMMARY | 2025-03-24 11:15 | XMS_ITS | Clinical Summary ---
Author Organization [facility] Address [address] [place] [address] Phone Care Team Providers Care Refrigeration Systems Installer Name Role Phone Unavailable Primary Care Provider Unavailabl e Social History Tobacco Use Types Packs/Day Years Used Date Smoking Tobacco: Never Assessed Sex and Gender Information Value Date Recorded Sex Assigned at Not on file Legal Sex Male 10:22 PM EST Gender Identity Not on file Sexual Orientation Not on file Obstetrics History Last Filed Vital Signs Vital Sign Reading Time Taken Comments Blood Pressure 135/86 08/14/2024 10:38 AM EDT Pulse 81 08/14/2024 10:38 AM EDT Temperature - - Respiratory Rate - - Oxygen Saturation - - Inhaled Oxygen Concentration - - Weight - - Height - - Body Mass Index - - Plan of Treatment Health Maintenance Due Date Last Done Comments DTaP,Tdap,and Td Vaccines (1 - Tdap) 2009 Hepatitis B Vaccines (1 of 3 - 19+ 3-dose series) 2009 Depression Screening 06/30/2024 HIV Screening 06/30/2024 Hepatitis C Screening 06/30/2024 Social Influencers of Health Screening 06/30/2024 COVID-19 Vaccine ( - 2023-2 5 season) 2024 Influenza Vaccine (Season Ended) 2025 HIB Vaccines Aged Out No longer eligi ble based on patient's age to complete this topic HPV Vaccines Aged Out No longer eligi ble based on patient's age to complete this topic Hepatitis A Vaccines Aged Out No long er eligible based on patient's age to complete this topic IPV Vaccines Aged Out No longer eligi ble based on patient's age to complete this topic MMR Vaccines Aged Out No longer eligi ble based on patient's age to complete this topic Meningococcal ACWY Vaccine Aged Out N o longer eligible based on patient's age to complete this topic Meningococcal B Vaccine Aged Out No l onger eligible based on patient's age to complete this topic Pneumococcal Vaccine: Pediat rics (0 to 5 Years) and At-Risk Patients (6 to 64 Years) Aged Out No longer eligible b ased on patient's age to complete this topic RSV Immunization Patients Un brennen 20 months Aged Out No longer eligible b ased on patient's age to complete this topic Varicella Vaccines Aged Out No longer eligible based on patient's age to complete this topic Insurance [place] - [place] TRAVELERS
--- OUTSIDE RECORDS SUMMARY | 2025-03-24 11:15 | XMS_ITS | Encounter Summary ---
Author Organization [facility] Address [address] [place] [address] Care Team Providers Care Residential Housekeeper Name Role Phone Pcp, No Primary Care Provider Unavailabl e Encounter Details Date Type Department Care Team ([facility] st Contact Info) Description 03/19/2025 Telephone [facility] Neurology [address] [phone] Jesus Hairston MD [address] [place] [phone] Social History Tobacco Use Types Packs/Day Years Used Date Smoking Tobacco: Never Smokeless Tobacco: Never Alcohol Use Standard Drinks/Week Comments Never 0 (1 standard drink = 0.6 oz pur e alcohol) PHQ-2 Answer Date Recorded PHQ-2 Total Score 6 12/15/2024 Sex and Gender Information Value Date Recorded Sex Assigned at Not on file Legal Sex Male 10:58 AM EDT Gender Identity Not on file Sexual Orientation Not on file documented as of this encounter Miscellaneous Notes * Telephone Encounter - Luci Hoskins RN - 03/23/2025 10:33 AM EDT Replied to patient' via [employer] * Telephone Encounter - Lolis Watt MA - 03/23/2025 9:31 AM EDT Kofi expressed concerns about the medication prescribed for his movements. He researched the medication and found it is typically prescribed for seizures. He wants to know if he should continue taking this medication. Kofi also inquired about the possibility of being seen sooner than September 17and wants to know what the next steps will be. * Telephone Encounter - Luci Hoskins RN - 03/19/2025 2:23 PM EDT Sent patient message via his MyChart * Telephone Encounter - Luci Hoskins RN - 03/19/2025 1:29 PM EDT Called patient and relayed message from physician. He is wondering if there are any other recommendations for testing to help him figure out what is going on with him. Please advise. * Telephone Encounter - Luci Hoskins RN - 03/19/2025 1:29 PM EDT ----- Message from Jesus Hairston MD sent at 03/19/2025 1:14 PM EDT ----- Please let patient know that his EEG came back normal, no sign of having seizures or increased riskof developing seizures. ----- Message ----- From: Keiko Pereira MD Sent: 03/11/2025 11:47 AM EDT To: Jesus Hairston MD documented in this encounter Plan of Treatment Upcoming Encounters Date Type Department Care Team (Late st Contact Info) Description 2025 9:10 AM EDT Office Visit [facility] Neurology [address] [phone] Antwan Pichardo, EXTRUSION DIE TEMPLATE MAKER [address] [facility] [address] [place] [phone] documented as of this encounter Visit Diagnoses Not on filedocumented in this encounter Care Teams Residential Housekeeper Relationship Specialty Start Date End Date Pcp, No PCP - General General Medicine 12/14/24 documented as of this encounter
== END 2025-03-24 10:43 | disposition home or self-care (01) ==
LOC: HO.HMCH 09:49
PROVIDERS: PCP Internal Medicine; Visit Provider Internal Medicine
DX: M54.2 Cervicalgia (principal); G25.3 Myoclonus; M54.89 Other dorsalgia; G47.00 Insomnia, unspecified; F41.9 Anxiety disorder, unspecified; E66.3 Overweight

== ENCOUNTER → 2025-03-24 09:49 | Outpatient (BNVA) | payer OTHER, SELFPAY | PROVIDERS: PCP Internal Medicine; Visit Provider Internal Medicine | DX: M54.2 Cervicalgia (principal); G25.3 Myoclonus; M54.89 Other dorsalgia; G47.00 Insomnia, unspecified; F41.9 Anxiety disorder, unspecified; E66.3 Overweight; Z68.27 Body mass index [BMI] 27.0-27.9, adult; Z79.899 Other long term (current) drug therapy | CPT/HCPCS: 96127; 99212 ==

== ENCOUNTER 2025-05-22 21:20 | Emergency (ER) | payer OTHER, SELFPAY ==
--- NOTE | ~2025-05-22 | CT_ITS ---
CLINICAL HISTORY: neck pain CT cervical spine without contrast Comparison: None provided Findings: Motion and streak artifact limit evaluation. Straightening of the cervical lordosis. Atlantooccipital assimilation. Incomplete segmentation at C2-C3. No significant degenerative change. No acute fractures or dislocations. Scattered prominent lymph nodes throughout the neck, may be reactive however are nonspecific. Lung apices are clear. IMPRESSION: No acute findings. This document has been electronically signed by: Javy Sharpe MD on 05/22/2025 23:12:22
[2025-05-22 21:28] VITALS: BP 140/91; PULSE 93; RESP 18; TEMP 36.7; O2SAT 98; BMI 27.1
[2025-05-22 21:53] LABS: MANUAL DIFF FLAG NO
[2025-05-22 21:57] LABS: Basophils Absolute Auto 0.1 X10*3/uL (0.0-0.2); Basophils Percent Auto 0.9 % (0-2); Eosinophils Absolute Auto 0.1 X10*3/uL (0.0-0.4); Eosinophils Percent Auto 1.2 % (0-4); Hematocrit 43.8 % (42.0-52.0); Hemoglobin 16.2 g/dl (14.0-18.0); Imm Gran Abs Auto 0.05 X10*3/uL (0.00-0.03); Imm Gran Pct Auto 0.4 % (0.0-0.4); Lymphocytes Absolute Auto 3.1 X10*3/uL (1.2-4.9); Lymphocytes Percent Auto 27.4 % (20-40); Mean Corpuscular Volume 83.9 fL (80.0-98.0); Mean Platelet Volume 9.4 fL (9.4-12.4); Monocytes Absolute Auto 1.1 X10*3/uL (0.1-1.2); Monocytes Percent Auto 9.6 % (2-11); Neutrophils Absolute Auto 6.9 x10*3/uL (2.0-8.3); Neutrophils Percent Auto 60.5 % (45-73); Platelet Count 272 X10*3/uL (160-400); Red Blood Count 5.22 X10*6/uL (4.60-5.80); Red Cell Distribution Width 13.7 % (11.0-16.0); White Blood Count 11.4 X10*3/uL (4.8-10.8)
[2025-05-22 22:00] VITALS: BP 127/76; PULSE 87; RESP 16; TEMP 36.8; O2SAT 97
[2025-05-22 22:06] LABS: Anion Gap 15 (12-20); Blood Urea Nitrogen 18 mg/dL (9-16); Calcium 8.9 mg/dL (8.4-10.2); Carbon Dioxide 21 mmol/L (22-29); Chloride 108 mmol/L (96-108); Creatinine Clr Calc Pharmacy 75.4; Estimated Glomerular Filt Rate 59; Glucose Random 116 mg/dL (60-115); Potassium 3.5 mmol/L (3.3-5.1); Sodium 140 mmol/L (135-145)
--- NOTE | 2025-05-22 22:28 | ED_ITS ---
HPI - General Adult General Chief complaint: Neck Pain/Injury Stated complaint: neck pain down to the back/wc case for 1yr+ Time Seen by Provider: 05/22/25 22:28 Source: patient Mode of arrival: ambulatory Limitations: no limitations History of Present Illness ED Provider: Elana Rosa PA-C HPI narrative: Patient is a 34 year old assigned male at with a history of a previous TBI / neck injury for which he is closely followed by outpatient providers presenting to the emergency department today with neck pain / neck spasms. Patient states that he was injured a year ago and has since developed seizures and intense spasms for which he was medicated up until recently when his health insurance stopped covering his medication but that has now been resolved. Patient states that today he went to put his seatbelt on and his neck began to spasm and has not stopped since. Patient denies any dizziness, lightheadedness, abdominal pain, nausea, vomiting, fever, chills, blurry vision, double vision, loss of vision, chest pain, difficulty breathing, shortness of breath, back pain, night sweats, pain with urination, increased urinary frequency, increased urinary urgency, blood in his urine or stool, syncope or a near syncopal episode, recent trauma or falls, bowel incontinence, bladder incontinence, or any other complaints at this time. Relieving factors: none Exacerbating factors: none Associated symptoms: denies other symptoms Treatments prior to arrival: none Related Data Home Medications ?Medication ?Instructions ?Recorded ?Confirmed acetaminophen 325 mg tablet 650 mg PO TID PRN 05/15/24 03/24/25 (Tylenol) naproxen 500 mg tablet 500 mg PO BID PRN pain 05/1503/24/25 clonazepam 0.5 mg tablet 0.5 mg PO BEDTIME 03/24/25 0 03/24/25 Previous Rx's ?Medication ?Instructions ?Recorded ibuprofen 600 mg tablet 600 mg PO TID PRN pain 30 da ys #90 05/15/24 tabs trazodone 50 mg tablet 50 mg PO BEDTIME PRN insomni a 30 12/15/24 days #30 tabs diazepam 2 mg tablet (Valium) 2 mg PO BID PRN muscle s pasm #3 05/23/25 tabs Allergies Allergy/AdvReac Type Severity Reaction Status Date / Time azithromycin Allergy Intermediate Itching Verified 05/22/25 21:33 Review of Systems 2 Constitutional: Constitutional: Reports no additional constitutional complaints, Denies chills, Denies fever(s) and Denies night sweats Eyes: Eyes: Reports no additional eye complaints, Denies blurry vision, Denies change in vision, Denies diplopia, Denies eye discharge, Denies loss of vision and Denies eye pain ENT: Denies dizziness and Reports neck pain Cardiovascular: Cardiovascular: Reports no additional cardiovascular complaints, Denies chest pain, Denies lightheadedness, Denies Loss of Consciousness and Denies dyspnea Respiratory: Respiratory: Reports no additional respiratory complaints and Denies dyspnea Gastrointestinal: Gastrointestinal: Reports no additional gastrointestinal complaints, Denies abdominal pain, Denies melena, Denies hematochezia, Denies change in bowel habits and Denies change in stool character Genitourinary: Genitourinary: Reports no additional male genitourinary complaints, Denies hematuria, Denies oliguria, Denies difficulty urinating, Denies dysuria, Denies urinary frequency, Denies urinary hesitancy, Denies urinary incontinence and Denies urinary urgency Musculoskeletal: Musculoskeletal: Reports no additional musculoskeletal complaints, Reports neck pain, Denies numbness and Denies tingling Neurologic: Denies dizziness, Denies loss of vision, Denies numbness and Denies tingling Psychiatric: Psychiatric: Reports no additional psychiatric complaints Endocrine: Endocrine: Reports no additional endocrine complaints Hematologic/Lymphatic: Hematologic/Lymphatic: Reports no additional hematologic/lymphatic complaints Allergic/Immunologic: Allergic/Immunologic: Reports no additional allergic/immunologic complaints PMF Past Medical History Attestation statement: The following information was validated with the patient. Source: old records reviewed and nursing notes reviewed Medical History Overweight (BMI 25.0-29.9) GERD (gastroesophageal reflux disease) Post traumatic stress disorder (PTSD) Anxiety Depression Meningitis Surgical screw in right hand Surgical History Hx of circumcision History of orthopedic surgery Family History Family History Mother Varicose veins of left leg with edema Depression with anxiety Breast cancer Chronic mental illness Exocrine pancreatic insufficiency Crohn disease Brother Autism Father No problems noted. 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 Cognitive needs: No Hearing needs: No Vision needs: No Physical Exam ED Vital Signs: Vital Signs - 24 hr 05/22/25 21:28 05/22/25 22:00 05/23/25 00:25 Temperature 98.0 F 98.3 F 97.5 F Pulse Rate 93 87 74 Respiratory Rate 18 16 14 Blood Pressure 140/91 H 127/76 118/72 Pulse Oximetry 98 97 98 Oxygen Delivery Method Room Air Room Air Room Air BMI result Body Mass Index 27.1 Const General: cooperative, no acute distress, alert and awake Nutritional Appearance: well nourished Orientation/consciousness: patient oriented x3 HENMT Head: Yes normal to inspection and Yes atraumatic Ears: hearing grossly normal bilaterally and external ears normal General nose exam: Normal external nose present, no nasal discharge noted and no epistaxis Face and sinus: Yes normal facial exam, No abrasion and No laceration Mouth: Normal oral and palatal mucosa present, no drooling and no muffled voice Eyes General: appearance normal, both eyes and all related structures Periorbital: periorbital findings normal Eyelids: Yes eyelids normal Conjunctivae: conjunctivae normal Pupils: Equal, round and reactive pupils present EOM: EOMs intact bilaterally Neck Neck: Yes normal visual inspection, Yes full ROM and Yes no lymphadenopathy Resp Effort & Inspection: normal respiratory effort and able to speak in complete sentences Neuro General: patient oriented x3, moves all extremities and CN's II-XI intact bilaterally Cranial nerves: Yes Equal, round and reactive pupils present Cognition (Neuro): normal cognition Extrem General: Yes normal to inspection, Yes full ROM and Yes capillary refill normal Psych Appearance: grossly normal Mental Status: mental status grossly normal Affect: normal affect Attitude: cooperative Thought process: Normal thought process present Thought content: Normal thought content present Insight: Good insight present (Psych) Medications Administered Discontinued Medications Generic Name Dose Route Start Last Admin Trade Name Shanell PRN Reason Stop Dose Admin Diazepam 5 mg 05/22/25 22:51 05/22/25 23:36 Diazepam 10 Mg/2 Ml Cartridge IVPUSH 05/22/25 22:52 5 mg STAT STA Administration Hydromorphone HCl 1 mg 05/22/25 22:48 05/22/25 23:36 Hydromorphone Hcl 1 Mg/Ml Syringe IVPUSH 05/22/25 22:49 1 mg ONCE ONE Administration Protocol Ondansetron HCl 4 mg 05/22/25 22:48 05/22/25 23:36 Ondansetron Hcl 4 Mg/2 Ml Vial IVPUSH 05/22/25 22:49 4 mg ONCE ONE Administration Medical Decision Making Medical Decision Making [facility] Narrative: Patient is a 34 year old assigned male at with a history of a previous TBI / neck injury for which he is closely followed by outpatient providers presenting to the emergency department today with neck pain / neck spasms. Patient's physical exam was unremarkable. Patient's blood work was unremarkable. Patient's CT c-spine showed no acute process. I explained my physical exam findings as well as all test results to the patient. I answered all questions asked by the patient. Patient received IV dilaudid and valium which, upon re- evaluation, he stated it helped his symptoms significantly. I stressed the importance of the patient taking his medication as directed (either prescribed or as the over the counter packaging recommends). I stressed the importance of the patient following up with his primary care provider. I stressed the importance of the patient returning to the emergency department immediately if his symptoms were to worsen or if he were to develop any dizziness, shortness of breath, difficulty breathing, chest pain, blurry vision, loss of vision, nausea, vomiting, abdominal pain, fever, chills, back pain, or any other complaints. Patient verbalized agreement and understanding with this treatment plan and discharge. Differential Diagnosis Differential Diagnoses: The differential diagnosis associated with the presentation includes Cervical sprain Cervical strain Cervical fracture Cervical muscle spasm Admission/Observation Consideration of admission/observation: Escalation of care including admission/observation considered Patient would have been admitted to the hospital had his work up had any findings where hospital admission was appropriate and his clinical presentation warranted hospital admission. Lab Data [facility] Lab Attestation statement: I reviewed the patient's lab results. My interpretation of these results are in the MDM Rationale portion of this note. 05/22/25 21:49 05/22/25 21:49 Labs: Lab Results 05/22/25 Range/Units 21:49 WBC 11.4 H (4.8-10.8) X10*3/uL RBC 5.22 (4.60-5.80) X10*6/uL Hgb 16.2 (14.0-18.0) g/dl Hct 43.8 (42.0-52.0) % MCV 83.9 (80.0-98.0) fL MCH 31.0 (27.0-33.0) pg MCHC 37.0 H (31.0-36.0) g/dl RDW 13.7 (11.0-16.0) % Plt Count 272 D (160-400) X10*3/uL MPV 9.4 (9.4-12.4) fL Immature Gran % (Auto) 0.4 (0.0-0.4) % Neut % (Auto) 60.5 (45-73) % Lymph % (Auto) 27.4 (20-40) % [place] % (Auto) 9.6 (2-11) % Eos % (Auto) 1.2 (0-4) % Baso % (Auto) 0.9 (0-2) % Lymph # (Auto) 3.1 (1.2-4.9) X10*3/uL [place] # (Auto) 1.1 (0.1-1.2) X10*3/uL Eos # (Auto) 0.1 (0.0-0.4) X10*3/uL Baso # (Auto) 0.1 (0.0-0.2) X10*3/uL Abs Immat Gran (auto) 0.05 H (0.00-0.03) X10*3/uL Absolute Neuts (auto) 6.9 (2.0-8.3) x10*3/uL Absolute Nucleated RBC 0.000 (0.0-0.012) X10*3/uL Nucleated RBC % (auto) 0.0 (0.0-0.2) /100WBC Sodium 140 (135-145) mmol/L Potassium 3.5 (3.3-5.1) mmol/L Chloride 108 (96-108) mmol/L Carbon Dioxide 21 L (22-29) mmol/L Anion Gap 15 (12-20) BUN 18 H (9-16) mg/dL Creatinine 1.38 (0.5-1.4) mg/dL Estim Creat Clear Calc 75.4 Estimated GFR 59 Random Glucose 116 H (60-115) mg/dL Calcium 8.9 D (8.4-10.2) mg/dL Magnesium 1.9 (1.6-2.6) mg/dL Total Bilirubin 1.0 (0.0-1.0) mg/dL Direct Bilirubin 0.3 (0.0-0.5) mg/dL AST 24 (5-37) U/L ALT 32 (0-40) U/L Alkaline Phosphatase 59 (39-117) U/L Total Protein 7.5 (6.5-8.0) g/dL Albumin 4.7 (3.5-5.0) g/dL Independent Interpretation I performed an independent interpretation of an: CT Scan Interpretation: My interpretation is in agreement with the radiologist's impression of this imaging study. L Report Number: [id number]: Total DLP = 457.00 mGy-cm CLINICAL HISTORY: neck pain CT cervical spine without contrast Comparison: None provided Findings: Motion and streak artifact limit evaluation. Straightening of the cervical lordosis. Atlantooccipital assimilation. Incomplete segmentation at C2-C3. No significant degenerative change. No acute fractures or dislocations. Scattered prominent lymph nodes throughout the neck, may be reactive however are nonspecific. Lung apices are clear. IMPRESSION: No acute findings. This document has been electronically signed by: Javy Sharpe MD on 05/22/2025 23:12:22 Dictated By: Javy Sharpe MD Signed By: Electronically signed by Jvay Sharpe MD 05/22/25 2598 Radiology Impression Discussion of test interpretation with radiology: I have reviewed the radiologist's reading. Prescription Management I considered prescription management with: Pain Medication (patient prescribed valium for muscle spasm) Critical Care Time Critical Care Time Critical Care Time: Yes Total Critical Care Time: 36 Attestation: I spent 36 minutes of Critical Care Time with this patient. This does not include time spent on separately reported billable procedures. Discharge Plan Discharge Clinical Impression: Cervical paraspinal muscle spasm Patient Disposition: Home, Self-Care Instructions: Muscle Spasm (ED) Additional Instructions: Follow up with your primary care provider. Return to the emergency department immediately if your symptoms worsen or if you develop any numbness, tingling, dizziness, shortness of breath, difficulty breathing, chest pain, blurry vision, loss of vision, nausea, vomiting, abdominal pain, fever, chills, back pain, or any other complaints. Please see the information below about our Patient Portal. If you are not yet enrolled in the [facility] Patient Portal, you will receive an enrollment email invitation following your visit to any [facility] setting. You may also self-enroll in the Patient Portal by visiting our website: [email or web address] The following information is required to access the Patient Portal: - Your [facility] Medical Record Number - Your personal home email address (must match what is in your electronic medical record, Registration staff can assist with this) - Name - Date of Capabilities of the Patient Portal: - Message some providers - View upcoming appointments - Access your health summary, medical history, and visit history - View current conditions and allergies - View procedure and lab results - View your medications, including guidelines, side effects, and precautions - Complete pre-appointment questionnaires requested by your provider - Ready summary reports of your office visits and procedures To access the Patient Portal Mobile [employer], follow these directions: - Search [employer] in the [employer] Store or [employer] Store - Download the [employer]ikeyan - Search for [facility] - Enter your login/password Prescriptions: New diazepam [Valium] 2 mg tablet 2 mg PO BID PRN (Reason: muscle spasm) Qty: 3 0RF No Action naproxen 500 mg tablet 500 mg PO BID PRN (Reason: pain) acetaminophen [Tylenol] 325 mg tablet 650 mg PO TID PRN ibuprofen 600 mg tablet 600 mg PO TID PRN (Reason: pain) 30 Days Qty: 90 2RF Rx Instructions: Take with food clonazepam 0.5 mg tablet 0.5 mg PO BEDTIME trazodone 50 mg tablet 50 mg PO BEDTIME PRN (Reason: insomnia) 30 Days Qty: 30 1RF Referrals: Krishna Cadena MD [Primary Care Provider, Internal Medicine] Print Language: Romansh
[2025-05-22 23:05] LABS: Alanine Aminotransferase 32 U/L (0-40); Albumin Level 4.7 g/dL (3.5-5.0); Alkaline Phosphatase 59 U/L (39-117); Aspartate Amino Transferase 24 U/L (5-37); Bilirubin Direct 0.3 mg/dL (0.0-0.5); Magnesium 1.9 mg/dL (1.6-2.6); Total Protein 7.5 g/dL (6.5-8.0)
[2025-05-22] MEDS: HYDROmorphone HCl 1 MG/ML SYRINGE IVPUSH (23:36)
[2025-05-22] MEDS: ondansetron HCL 4 MG/2 ML VIAL IVPUSH (23:36)
[2025-05-22] MEDS: diazePAM 10 MG/2 ML CARTRIDGE 5 MG IVPUSH (23:36)
[2025-05-23 00:25] VITALS: BP 118/72; PULSE 74; RESP 14; TEMP 36.4; O2SAT 98
[2025-05-23 02:05] VITALS: BP 118/72; PULSE 74; RESP 14; TEMP 36.4; O2SAT 98
== END 2025-05-23 02:08 | disposition home or self-care (01) ==
PROVIDERS: Physician Assistant Medical; Emergency Provider Emergency Medicine Emergency Medical Services; PCP Internal Medicine
DX: M62.838 Other muscle spasm (principal); M54.2 Cervicalgia; Z87.820 Personal history of traumatic brain injury
CPT/HCPCS: 36415; 72125; 80048; 80076; 83735; 85025; 96374; 96375; 99284; J1171; J2405; J3360

== ENCOUNTER → 2025-05-22 22:28 | Outpatient (BNV) | payer OTHER, SELFPAY | PROVIDERS: PCP Internal Medicine; Visit Provider Radiology Diagnostic Radiology | DX: S19.9XXA Unspecified injury of neck, initial encounter (principal) | CPT/HCPCS: 72125 ==

== ENCOUNTER 2025-07-08 13:30 | Outpatient (AMB) | payer OTHER, SELFPAY ==
[2025-07-08 13:33] VITALS: BP 116/80; PULSE 58; O2SAT 98; BMI 27.3
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
--- OUTSIDE RECORDS SUMMARY | 2025-07-08 13:34 | XMS_ITS ---
Author Name [facility] Organization Unknown History of Medication Use [...] Problem Type Date of Resoluti on Source Functional movement disorder active EncounterDiagnosisAct C TTHNEMG Dystonia active EncounterDiagnosisAct CTTHNEMG Concussion with brief LOC active 2024-04-16 ProblemAct CTTHNEMG Encounters Encounter Type Encounter Reason Primary Diagnosis Location Date Amb[facility] 5 Ambulatory Myoclonus Myoclonus [facility] 5 Ambulatory THoNE [facility] 4 Ambulatory Concussion with loss of consciousness status unknown, initial encounter Concussion with loss of consciousness status unknown, initial encounter [facility] 4 Ambulatory Concussion with loss of consciousness status unknown, initial encounter Concussion with loss of consciousness status unknown, initial encounter [facility] 4 Ambulatory Concussion with loss of consciousness status unknown, initial encounter Concussion with loss of consciousness status unknown, initial encounter [facility] 4 Ambulatory Concussion with loss of consciousness status unknown, initial encounter Concussion with loss of consciousness status unknown, initial encounter [facility] 4 Ambulatory Concussion with loss of consciousness status unknown, initial encounter Concussion with loss of consciousness status unknown, initial encounter [facility] 4 Ambulatory Concussion with loss of consciousness status unknown, initial encounter Concussion with loss of consciousness status unknown, initial encounter [facility] 4 Ambulatory Concussion with loss of consciousness status unknown, initial encounter Concussion with loss of consciousness status unknown, initial encounter [facility] 4 Ambulatory Concussion with loss of consciousness status unknown, initial encounter Concussion with loss of consciousness status unknown, initial encounter [facility] 4 Ambulatory [facility] 4 Ambulatory [facility] 4 Ambulatory Concussion with loss of consciousness status unknown, initial encounter Concussion with loss of consciousness status unknown, initial encounter [facility] 4 Ambulatory [facility] 4 Ambulatory [facility] 4 Ambulatory [facility] 4 Ambulatory Postconcussional syndrome Postconcussional syndrome [facility] 4 Ambulatory [facility] 4 Ambulatory Postconcussional syndrome Postconcussional syndrome [facility] 4 Ambulatory Concussion with loss of consciousness status unknown, initial encounter Concussion with loss of consciousness status unknown, initial encounter [facility] 4 Ambulatory Postconcussional syndrome Postconcussional syndrome [facility] 4 Ambulatory Postconcussional syndrome Postconcussional syndrome [facility] 4 Ambulatory [facility] 4 Ambulatory Postconcussional syndrome Postconcussional syndrome [facility] 4 Ambulatory Postconcussional syndrome Postconcussional syndrome [facility] 4 Ambulatory Postconcussional syndrome Postconcussional syndrome [facility] 4 Ambulatory Postconcussional syndrome Postconcussional syndrome [facility] 4 Ambulatory Postconcussional syndrome Postconcussional syndrome [facility] 4 Ambulatory Postconcussional syndrome Postconcussional syndrome [facility] 4 Ambulatory Postconcussional syndrome Postconcussional syndrome [facility] 4 Care Team Organization Name Specialty Phone Email Start Date End Da te [employer] 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
--- OUTSIDE RECORDS SUMMARY | 2025-07-08 13:34 | XMS_ITS | Clinical Summary ---
Author Organization [facility] [place] [facility] Address [address] [place] [address] Care Team Providers Care Armorer Technician Name Role Phone Unavailable Primary Care Provider [...] (1 - Tdap) 2009 Influenza Vaccine (#1) 2025 Pneumococcal Vaccine Aged Out No long er eligible based on patient's age to complete this topic RSV Ped < 20 months Aged Out No longe r eligible based on patient's age to complete this topic
--- OUTSIDE RECORDS SUMMARY | 2025-07-08 13:34 | XMS_ITS | Clinical Summary ---
Author Organization [facility] Address [address] [place] [address] Care Team Providers Care Plate Straightener Name Role Phone Pcp, No Primary Care Provider Unavailabl e Allergies No known active allergies Medications gabapentin (NEURONTIN) 300 MG capsule Take 1 capsule (300 mg total) by mouth 3 (three) times a day. 06/10/2024 Active OXcarbazepine (TRILEPTAL) 150 MG tabletIndicatio ns:Myoclonus Take 1 tablet (150 mg total) by mouth 2 (two) times a day. 60 tablet 3 02/25/2025 Active Encounters Date Type Department Care Team Description 06/11/2025 Telephone [facility] Neurology [address] [phone] Antwan Pichardo APRN Other 05/24/2025 Telephone [facility] Neurology [address] [phone] Jesus Hairston MD from Last 3 Months Family History Medical [...] Description 2025 9:10 AM EDT Office Visit [facility] Neurology [place] [address] [place] [address] Antwan Pichardo, JOSE ENRIQUE [address] [place] [address] Health Maintenance Due Date Last Done Comments Hepatitis C Virus Screening 1990 HIV Screening 2003 DTaP/Tdap/Td Vaccines (1 - Tdap) 2009 Hepatitis B Vaccines (1 of 3 - 19+ 3-dose series) 2009 COVID-19 Vaccine ( - 2023-2 5 season) 2024 Influenza Vaccine 07/02/2025 HPV Vaccines Aged Out No longer eligi ble based on patient's age to complete this topic Pneumococcal Vaccine: Pediat gregory (0-5 Years) and At-Risk Patients (6 to 49 Years) Aged Out No longer eligible b ased on patient's age to complete this topic Insurance [employer] Care Teams Plate Straightener Relationship Specialty Start Date End Date Pcp, No PCP - General General Medicine 12/14/24
--- OUTSIDE RECORDS SUMMARY | 2025-07-08 13:34 | XMS_ITS | Clinical Summary ---
Author Organization [facility] Address [address] [place] [address] Phone Care Team Providers Care Speech Lang Path Therapist Name Role Phone Unavailable Primary Care Provider [...] of 3 - 19+ 3-dose series) 2009 HIV Screening 06/30/2024 Hepatitis C Screening 06/30/2024 Social Influencers of Health Screening 06/30/2024 COVID-19 Vaccine (1 - 2023-2 5 season) 2024 Depression Screening 12/02/2024 Influenza Vaccine (#1) 2025 HIB Vaccines Aged Out No longer [...] 5 Years) and At-Risk Patients (6 to 49 [...]
== END 2025-07-08 14:08 | disposition home or self-care (01) ==
LOC: HO.HMCH 13:31
PROVIDERS: PCP Internal Medicine; Visit Provider Internal Medicine
DX: M54.2 Cervicalgia (principal); G25.3 Myoclonus; M54.89 Other dorsalgia; G47.00 Insomnia, unspecified; F41.9 Anxiety disorder, unspecified; E66.3 Overweight

== ENCOUNTER → 2025-07-08 13:30 | Outpatient (BNVA) | payer OTHER, SELFPAY | PROVIDERS: PCP Internal Medicine; Visit Provider Internal Medicine | DX: M54.2 Cervicalgia (principal); M62.838 Other muscle spasm; G25.3 Myoclonus; M54.89 Other dorsalgia; F41.9 Anxiety disorder, unspecified; E66.3 Overweight; Z68.27 Body mass index [BMI] 27.0-27.9, adult | CPT/HCPCS: 96127; 99212 ==